=== PATIENT | male | born 1960 | race Caucasian/White ===

== ENCOUNTER 2018-02-04 09:50 | Emergency (ER) | payer OTHER, BC ==
[2018-02-04 10:00] VITALS: BP 167/113
--- NOTE | 2018-02-04 10:40 | EDM.PDOC ---
ED HPI GENERAL MEDICAL PROBLEM - General Chief Complaint: Chest Pain Stated Complaint: CHEST PAIN/SOB Time Seen by Provider: 02/04/18 10:36 Source of Information: Reports: Patient - History of Present Illness INITIAL COMMENTS - FREE TEXT/NARRATIVE: Patient is here for evaluation of chest pain over the last few months that has been worsening over the past week. He notes it is now pretty much a constant central chest pain that occasionally radiates to his right shoulder. 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 He has a total of 6 stents. He also has a history of TIA. He is still on his aspirin and Plavix. He does carry nitroglycerin has not taken this. Patient also has history of hypertension and sleep apnea, he does use his CPAP mask nightly. Patient notes that he is asleep he has had a significant increase in his stress recently with his losing her job. She has since found a new job in [place] and she is living there and he is raising his 9-year-old son here in [place]. Chest Pain Score (Numeric/FACES): 3 - Related Data Allergies Allergy/AdvReac Type Severity Reaction Status Date / Time morphine Allergy Hypotension Verified 02/04/18 10:00 Home Meds: Home Meds Aspirin [Adult Low Dose Aspirin EC] 81 mg PO DAILY 11/16/15 [History] Omeprazole [Prilosec] 20 mg PO DAILY 11/16/15 [History] Potassium Chloride 20 meq PO DAILY 11/16/15 [History] Budesonide/Formoterol [Symbicort 160-4.5 MCG] 2 puff INH BID 08/06/16 [History] Cetirizine [ZyrTEC] 10 mg PO DAILY 08/06/16 [History] Fish Oil/DHA/EPA [Fish Oil 1,200 MG] 1,200 mg PO DAILY 08/06/16 [History] Ibuprofen 400 mg PO ASDIRECTED PRN 08/06/16 [History] Metoprolol Tartrate [Lopressor] 12.5 mg PO DAILY 08/06/16 [History] Niacin [Niaspan] 2 tab PO DAILY 08/06/16 [History] Nitroglycerin 0.4 mg SL ASDIRECTED PRN 08/06/16 [History] Testosterone Cypionate 200 mg IM ASDIRECTED 08/06/16 [History] diphenhydrAMINE HCl [Allergy] 25 mg PO BEDTIME PRN 08/06/16 [History] Clopidogrel [Plavix] 75 mg PO DAILY 11/21/16 [History] Pravastatin. 11/21/16 [History] Prednisone [IJD: predniSONE] 60 mg PO WITHBREAKFAST #15 tab 11/21/16 [Rx] Acetaminophen [Tylenol Extra Strength] 1,000 mg PO ASDIRECTED PRN 02/04/18 [ History] Albuterol Sulfate [Proair Respiclick] 2 puff INH Q4H PRN 02/04/18 [History] Past Medical History HEENT History: Reports: Impaired Vision Other HEENT History: wears eyeglasses Cardiovascular History: Reports: CAD, Hypertension, KS Other Cardiovascular History: 2 previous MIs. last in 2006 Respiratory History: Reports: Asthma, COPD Gastrointestinal History: Reports: GERD Musculoskeletal History: Reports: Back Pain, Chronic, Fracture, Other (See Below ) Other Musculoskeletal History: degenerative SI joint Neurological History: Reports: CVA, Head Trauma, TIA, Other (See Below) Other Neuro History: memory loss Dermatologic History: Reports: Other (See Below) Other Dermatologic History: affliculitis - Infectious Disease History Infectious Disease History: Reports: Chicken Pox, Measles, Mumps - Past Surgical History HEENT Surgical History: Reports: Other (See Below) Other HEENT Surgeries/Procedures: septoplasty Cardiovascular Surgical History: Reports: Coronary Artery Stent Other Cardiovascular Surgeries/Procedures: stents X3 Respiratory Surgical History: Reports: None GI Surgical History: Reports: Other (See Below) Other GI Surgeries/Procedures: esophageal dilation Neurological Surgical History: Reports: None Musculoskeletal Surgical History: Reports: None Dermatological Surgical History: Reports: None Social & Family History - Family History Family Medical History: Noncontributory - Tobacco Use Smoking Status *Q: Never Smoker Second Hand Smoke Exposure: No - Caffeine Use Caffeine Use: Reports: Soda - Recreational Drug Use Recreational Drug Use: No ED ROS GENERAL - Review of Systems Review Of Systems: See Below Constitutional: Reports: Weakness, Fatigue. Denies: Fever, Chills, Malaise, Decreased Appetite HEENT: Reports: No Symptoms Respiratory: Reports: Shortness of Breath. Denies: Wheezing, Pleuritic Chest Pain, Cough, Sputum Cardiovascular: Reports: Chest Pain, Blood Pressure Problem, Dyspnea on Exertion. Denies: Claudication, Edema, Palpitations, Syncope GI/Abdominal: Reports: No Symptoms Skin: Reports: No Symptoms Neurological: Reports: No Symptoms ED EXAM, GENERAL - Physical Exam Exam: See Below Exam Limited By: No Limitations General Appearance: Alert, WD/WN, Anxious, Mild Distress Throat/Mouth: Normal Inspection, Normal Lips, Normal Oropharynx, Normal Voice Head: Atraumatic, Normocephalic Neck: Normal Inspection, Supple, Non-Tender Respiratory/Chest: No Respiratory Distress, Lungs Clear, Normal Breath Sounds Cardiovascular: Normal Peripheral Pulses, Regular Rate, Rhythm, No Murmur GI/Abdominal: Normal Bowel Sounds, Soft, Non-Tender Neurological: Alert, Oriented Psychiatric: Normal Affect, Normal Mood Skin Exam: Warm, Dry, Intact EKG INTERPRETATION EKG Date: 02/04/18 Time: 10:01 Rhythm: NSR Rate (Beats/Min): 78 [place]: Normal Course - Vital Signs Last Recorded V/S: Last Vital Signs Temp 97.0 F 02/04/18 09:57 Pulse 77 02/04/18 09:57 Resp 19 02/04/18 09:57 BP 167/113 H 02/04/18 09:57 Pulse Ox 96 02/04/18 09:57 - Orders/Labs/Meds Orders: Active Orders 24 hr Category Date Time Status EKG Documentation Completion [RC] ASDIRECTED Care 02/04/18 10:45 Active MAGNESIUM [CHEM] Stat Lab 02/04/18 10:15 Received UA W/MICROSCOPIC [URIN] Stat Lab 02/04/18 11:18 Results EKG 12 Lead [EK] Stat Ther 02/04/18 10:45 Ordered Labs: Laboratory Tests 02/04/18 02/04/18 02/04/18 Range/Units 10:15 10:15 11:18 WBC 6.87 (4.23-9.07) K/mm3 RBC 4.93 (4.63-6.08) M/mm3 Hgb 15.5 (13.7-17.5) gm/L Hct 44.6 (40.1-51.0) % MCV 90.5 (79.0-92.2) fl MCH 31.4 (25.7-32.2) pg MCHC 34.8 (32.2-35.5) g/dl RDW Std Deviation 44.3 H (35.1-43.9) fL Plt Count 266 (163-337) K/mm3 MPV 9.0 L (9.4-12.3) fl Neutrophils % (Manual) 58 (40-60) % Band Neutrophils % 1 (0-10) % Lymphocytes % (Manual) 36 (20-40) % Atypical Lymphs % 0 % Monocytes % (Manual) 4 (2-10) % Eosinophils % (Manual) 1 (0.8-7.0) % Basophils % (Manual) 0 L (0.2-1.2) Platelet Estimate Adequate RBC Morph Comment Normal Sodium 138 (136-145) mEq/L Potassium 3.5 (3.5-5.1) mEq/L Chloride 103 (98-107) mEq/L Carbon Dioxide 23 (21-32) mEq/L Anion Gap 15.5 H (5-15) BUN 9 (7-18) mg/dL Creatinine 1.0 (0.7-1.3) mg/dL Est Cr Clr Drug Dosing 88.90 mL/min Estimated GFR (MDRD) > 60 (>60) mL/min BUN/Creatinine Ratio 9.0 L (14-18) Glucose 145 H (74-106) mg/dL Calcium 8.8 (8.5-10.1) mg/dL Total Bilirubin 0.4 (0.2-1.0) mg/dL AST 25 (15-37) U/L ALT 37 (16-63) U/L Alkaline Phosphatase 73 (46-116) U/L Troponin I < 0.017 (0.00-0.056) ng/mL C-Reactive Protein < 0.2 (<1.0) mg/dL Total Protein 7.4 (6.4-8.2) g/dl Albumin 3.7 (3.4-5.0) g/dl Globulin 3.7 gm/dL Albumin/Globulin Ratio 1.0 (1-2) Lipase 203 (73-393) U/L TSH 3rd Generation 2.010 (0.358-3.74) uIU/mL Urine Color Yellow (Yellow) Urine Appearance Clear (Clear) Urine pH 7.5 (5.0-8.0) Ur Specific [place] 1.020 (1.005-1.030) Urine Protein Negative (Negative) Urine Glucose (UA) Negative (Negative) Urine Ketones Negative (Negative) Urine Occult Blood Trace-lysed H (Negative) Urine Nitrite Negative (Negative) Urine Bilirubin Negative (Negative) Urine Urobilinogen 0.2 (0.2-1.0) Ur Leukocyte Esterase Negative (Negative) - Re-Assessments/Exams Free Text/Narrative Re-Assessment/Exam: Patient states his pain has been ongoing, he declines pain medication for now. EKG demonstrates normal sinus rhythm with a rate of 78. Chest x-ray demonstrates nothing acute. CBC normal. Glucose mildly elevated at 145. Troponin and CRP are both negative. TSH 2.010. Discussed with patient that as he has been having symptoms for some time, if this were causing her damage his troponin will be elevated. Patient is to follow-up with his primary provider and I would recommend his operations systems specialist as well to discuss further treatment of angina. He has been having some increased stress and anxiety and this will need to be addressed on an outpatient basis as well. Advised patient if anything should worsen or persist that he certainly may return to the emergency room at any time if needed. 02/04/18 11:49 02/04/18 12:26 Departure - Departure Time of Disposition: 12:27 Disposition: Home, Self-Care 01 Condition: Good Clinical Impression: Angina at rest Instructions: Angina Pectoris, [id number] Referrals: Ebony Alfaro DO [Primary Care Provider] - Forms: ED Department Discharge Additional Instructions: Evaluation of your heart today in the emergency room was essentially negative. You will need to follow up with her primary provider and operations systems specialist to evaluate this further and consider other options for treatment of your chronic angina. Return to the emergency room if any worsening of symptoms or as needed. - My Orders Last 24 Hours: My Active Orders 02/04/18 10:15 MAGNESIUM [CHEM] Stat 02/04/18 10:45 EKG Documentation Completion [RC] ASDIRECTED EKG 12 Lead [EK] Stat 02/04/18 11:18 UA W/MICROSCOPIC [URIN] Stat - Assessment/Plan Last 24 Hours: My Active Orders 02/04/18 10:15 MAGNESIUM [CHEM] Stat 02/04/18 10:45 EKG Documentation Completion [RC] ASDIRECTED EKG 12 Lead [EK] Stat 02/04/18 11:18 UA W/MICROSCOPIC [URIN] Stat
--- NOTE | 2018-02-04 11:51 | CR ---
Chest: Two views of the chest were obtained. Comparison: Prior chest x-ray of 08/06/[address] of 11/21/16. Heart size and mediastinum are within normal limits. Lungs show no acute parenchymal densities. Old healed left clavicle fracture is noted. Mild degenerative change is scattered within the spine. Degenerative change also noted within the right acromioclavicular joint. Impression: 1. Incidental findings. Nothing acute is appreciated on two-view chest x-ray. Diagnostic code #2
== END 2018-02-04 12:43 | disposition home or self-care (01) ==
LOC: JD.ED 09:50
DX: I20.9 Angina pectoris, unspecified (principal); K21.9 Gastro-esophageal reflux disease without esophagitis; J44.9 Chronic obstructive pulmonary disease, unspecified; I25.2 Old myocardial infarction; Z86.73 Personal history of transient ischemic attack (TIA), and cerebral infarction without residual deficits; Z79.82 Long term (current) use of aspirin; Z79.899 Other long term (current) drug therapy; Z88.5 Allergy status to narcotic agent
CPT/HCPCS: 36415; 71046; 71046-26; 80053; 81001; 83690; 83735; 84443; 84484; 85025; 86140; 93005; 93010; 99284; 99285-25

== ENCOUNTER 2019-09-20 07:48 | Emergency (ER) | payer OTHER ==
--- NOTE | 2019-09-20 07:57 | EDM.PDOC ---
ED HPI GENERAL MEDICAL PROBLEM - General Chief Complaint: General Stated Complaint: BROUGHT OVER FROM STRESS TEST Time Seen by Provider: 09/20/19 07:55 - History of Present Illness INITIAL COMMENTS - FREE TEXT/NARRATIVE: 59-year-old male brought over from the stress test lab have shortness of breath. Patient's had a history of 3 myocardial infarctions in the past and multiple stents placed. [facility]. He has cardiology follow- up this coming . Patient underwent his stress test and it was slow to get his pulse rate up he had the [place] scan done and developed persistent shortness of breath that did not resolve. The patient did not have chest pain but he was starting to get some left arm discomfort normally with his angina he gets chest pain followed by the left arm discomfort. The patient is on Plavix and aspirin. Patient gives a history of about a 20 pound weight loss over the last several months during this time he was started on diuretics because of edema in his left leg. Apparently an ultrasound, or some other imaging study done to his left leg but has been a unable to get the [facility] of this [facility]. the patient doesn't sound like it is on a exercise regimen. He did walk 3 blocks on and had to stop because of shortness of breath and left arm pain. The patient has nitroglycerin with him however has never used it. - Related Data Allergies Allergy/AdvReac Type Severity Reaction Status Date / Time [id number] Reductase Allergy Muscle Verified 09/20/19 07:54 Inhibitor Aches morphine AdvReac Hypotension Verified 09/20/19 07:54 Home Meds: Home Meds Aspirin [Adult Low Dose Aspirin EC] 81 mg PO DAILY 11/16/15 [History] Budesonide/Formoterol [Symbicort 160-4.5 MCG] 2 puff INH BID 08/06/16 [History] Cetirizine [ZyrTEC] 10 mg PO DAILY 08/06/16 [History] Fish Oil/DHA/EPA [Fish Oil 1,200 MG] 1,200 mg PO DAILY 08/06/16 [History] Ibuprofen 400 mg PO ASDIRECTED PRN 08/06/16 [History] Nitroglycerin 0.4 mg SL ASDIRECTED PRN 08/06/16 [History] diphenhydrAMINE HCl [Allergy] 25 mg PO BEDTIME PRN 08/06/16 [History] Clopidogrel [Plavix] 75 mg PO DAILY 11/21/16 [History] Acetaminophen [Tylenol Extra Strength] 1,000 mg PO ASDIRECTED PRN 02/04/18 [ History] Albuterol Sulfate [Proair Respiclick] 2 puff INH Q4H PRN 02/04/18 [History] Flaxseed/Omega3,6,9/Fatty Acid [Flax Seed Oil 1,300 mg Softgel] 1 tab PO DAILY 02/04/18 [History] Metoprolol Succinate [Toprol XL] 12.5 mg PO BID 02/04/18 [History] Multivitamin [Multivitamins] 1 each PO DAILY 02/04/18 [History] Pantoprazole [ProTONIX] 40 mg PO DAILY 02/04/18 [History] Pravastatin [Pravachol] 40 mg PO BEDTIME 02/04/18 [History] Cyclobenzaprine [Flexeril] 10 mg PO TID PRN 09/25/18 [History] Fish Oil/DHA/EPA [Fish Oil 1,200 MG] 1,200 mg PO DAILY 09/25/18 [History] Lisinopril/Hydrochlorothiazide [Lisinopril-Hctz 20-25 mg Tab] 0.5 tab PO DAILY 09/25/18 [History] Potassium Chloride [Klor-Con M20] 20 meq PO Q24H #3 tab.er 09/20/19 [Rx] Past Medical History HEENT History: Reports: Allergic Rhinitis, Impaired Vision Other HEENT History: wears eyeglasses Cardiovascular History: Reports: CAD, High Cholesterol, Hypertension, Stents Other Cardiovascular History: 2 previous MIs. last in 2006 Respiratory History: Reports: Asthma, Sleep Apnea Gastrointestinal History: Reports: Colon Polyp, Diverticulosis, GERD, Other ( See Below) Other Gastrointestinal History: esophagitis, diverticulosis Genitourinary History: Reports: Other (See Below) Other Genitourinary History: testicular hypofunction COLLECTIONS MANAGER History: Reports: None Musculoskeletal History: Reports: None Other Musculoskeletal History: degenerative SI joint Neurological History: Reports: TIA Other Neuro History: memory loss Psychiatric History: Reports: Other (See Below) Other Psychiatric History: dysthymia, dyslexia Endocrine/Metabolic History: Reports: None Immunologic History: Reports: None Oncologic (Cancer) History: Reports: None Dermatologic History: Reports: None Other Dermatologic History: affliculitis - Infectious Disease History Infectious Disease History: Reports: Chicken Pox, Measles, Mumps - Past Surgical History Head Surgeries/Procedures: Reports: None HEENT Surgical History: Reports: Naso-Sinus Surgery, Tonsillectomy Cardiovascular Surgical History: Reports: None, Coronary Artery Stent (times 3) Respiratory Surgical History: Reports: None GI Surgical History: Reports: Colonoscopy, EGD Female Surgical History: Reports: None Male Surgical History: Reports: None Endocrine Surgical History: Reports: None Neurological Surgical History: Reports: None Musculoskeletal Surgical History: Reports: None Oncologic Surgical History: Reports: None Dermatological Surgical History: Reports: None Social & Family History - Family History Family Medical History: Noncontributory - Caffeine Use Caffeine Use: Reports: Soda ED ROS GENERAL - Review of Systems Review Of Systems: See Below Constitutional: Reports: No Symptoms HEENT: Reports: No Symptoms Respiratory: Reports: Shortness of Breath (With today's stress test and with activity) Cardiovascular: Reports: Dyspnea on Exertion GI/Abdominal: Reports: No Symptoms : Reports: No Symptoms Musculoskeletal: Reports: No Symptoms Neurological: Reports: No Symptoms Psychiatric: Reports: No Symptoms ED EXAM, GENERAL - Physical Exam Exam: See Below Exam Limited By: No Limitations General Appearance: Alert, No Apparent Distress Head: Atraumatic, Normocephalic Neck: Normal Inspection, Supple, Non-Tender, Full Range of Motion, Other (No JVD ). No: Lymphadenopathy (R), Thyromegaly Respiratory/Chest: No Respiratory Distress, Lungs Clear, Normal Breath Sounds Cardiovascular: Regular Rate, Rhythm, No Murmur, Other (No appreciable edema) GI/Abdominal: Normal Bowel Sounds, Soft, Non-Tender Back Exam: Normal Inspection. No: CVA Tenderness (L), CVA Tenderness (R) Extremities: Normal Inspection, Non-Tender Neurological: Alert, Oriented, Normal Cognition Course - Vital Signs Last Recorded V/S: Last Vital Signs Temp 36.8 C 09/20/19 07:52 Pulse 70 09/20/19 11:17 Resp 18 09/20/19 10:41 BP 136/89 09/20/19 11:17 Pulse Ox 100 09/20/19 10:41 - Orders/Labs/Meds Orders: Active Orders 24 hr Category Date Time Status EKG Documentation Completion [RC] STAT Care 09/20/19 07:56 Active EKG Documentation Completion [RC] STAT Care 09/20/19 08:08 Inactive Labs: Laboratory Tests 09/20/19 09/20/19 09/20/19 Range/Units 08:00 08:00 08:00 WBC 5.83 (4.23-9.07) K/mm3 RBC 4.51 L (4.63-6.08) M/mm3 Hgb 14.6 (13.7-17.5) gm/dl Hct 40.5 (40.1-51.0) % MCV 89.8 (79.0-92.2) fl MCH 32.4 H (25.7-32.2) pg MCHC 36.0 H (32.2-35.5) g/dl RDW Std Deviation 41.2 (35.1-43.9) fL Plt Count 267 (163-337) K/mm3 MPV 8.9 L (9.4-12.3) fl Neutrophils % (Manual) 59 (40-60) % Band Neutrophils % 0 (0-10) % Lymphocytes % (Manual) 21 (20-40) % Atypical Lymphs % 0 % Monocytes % (Manual) 12 H (2-10) % Eosinophils % (Manual) 8 H (0.8-7.0) % Basophils % (Manual) 0 L (0.2-1.2) Platelet Estimate Adequate RBC Morph Comment Normal PT 11.7 (9.7-12.0) SECONDS INR 1.08 APTT 27 (22-31) SECONDS Sodium 138 (136-145) mEq/L Potassium 3.3 L (3.5-5.1) mEq/L Chloride 103 (98-107) mEq/L Carbon Dioxide 22 (21-32) mEq/L Anion Gap 16.3 H (5-15) BUN 15 (7-18) mg/dL Creatinine 1.4 H (0.7-1.3) mg/dL Est Cr Clr Drug Dosing 62.00 mL/min Estimated GFR (MDRD) 52 (>60) mL/min BUN/Creatinine Ratio 10.7 L (14-18) Glucose 107 H (74-106) mg/dL Calcium 9.2 (8.5-10.1) mg/dL Magnesium (1.8-2.4) mg/dl Total Bilirubin 0.5 (0.2-1.0) mg/dL AST 23 (15-37) U/L ALT 27 (16-63) U/L Alkaline Phosphatase 64 (46-116) U/L Troponin I < 0.017 (0.00-0.056) ng/mL NT-Pro-B Natriuret Pep (0-125) pg/mL Total Protein 7.3 (6.4-8.2) g/dl Albumin 3.8 (3.4-5.0) g/dl Globulin 3.5 gm/dL Albumin/Globulin Ratio 1.1 (1-2) 09/20/19 09/20/19 09/20/19 Range/Units 08:00 08:00 11:03 WBC (4.23-9.07) K/mm3 RBC (4.63-6.08) M/mm3 Hgb (13.7-17.5) gm/dl Hct (40.1-51.0) % MCV (79.0-92.2) fl MCH (25.7-32.2) pg MCHC (32.2-35.5) g/dl RDW Std Deviation (35.1-43.9) fL Plt Count (163-337) K/mm3 MPV (9.4-12.3) fl Neutrophils % (Manual) (40-60) % Band Neutrophils % (0-10) % Lymphocytes % (Manual) (20-40) % Atypical Lymphs % % Monocytes % (Manual) (2-10) % Eosinophils % (Manual) (0.8-7.0) % Basophils % (Manual) (0.2-1.2) Platelet Estimate RBC Morph Comment PT (9.7-12.0) SECONDS INR APTT (22-31) SECONDS Sodium (136-145) mEq/L Potassium (3.5-5.1) mEq/L Chloride (98-107) mEq/L Carbon Dioxide (21-32) mEq/L Anion Gap (5-15) BUN (7-18) mg/dL Creatinine (0.7-1.3) mg/dL Est Cr Clr Drug Dosing mL/min Estimated GFR (MDRD) (>60) mL/min BUN/Creatinine Ratio (14-18) Glucose (74-106) mg/dL Calcium (8.5-10.1) mg/dL Magnesium 1.9 (1.8-2.4) mg/dl Total Bilirubin (0.2-1.0) mg/dL AST (15-37) U/L ALT (16-63) U/L Alkaline Phosphatase (46-116) U/L Troponin I < 0.017 (0.00-0.056) ng/mL NT-Pro-B Natriuret Pep 112 (0-125) pg/mL Total Protein (6.4-8.2) g/dl Albumin (3.4-5.0) g/dl Globulin gm/dL Albumin/Globulin Ratio (1-2) Meds: Medications Discontinued Medications Generic Name Dose Route Start Last Admin Trade Name Kwame PRN Reason Stop Dose Admin Aspirin 324 mg 09/20/19 08:21 09/20/19 08:36 Aspirin PO 09/20/19 08:22 324 mg ONETIME ONE Administration Potassium Chloride 40 meq 09/20/19 09:52 09/20/19 11:12 Klor-Con M20 PO 09/20/19 09:53 40 meq ONETIME ONE Administration - Re-Assessments/Exams Free Text/Narrative Re-Assessment/Exam: 09/20/19 12:25 Patient feels normal at this time his second troponin was negative. He had Cardiolite images done as part of stress test this morning these have not been read yet however I've talked to radiology and they will try and get back to me with report fairly soon. His BNP is normal. Initial labs did show a potassium that was a little low at 3.3 he was given 40 mEq of oral potassium. Follow-up magnesium was borderline at 1.9 09/20/19 13:35 Just got his Cardiolite images. No abnormality seen here the limited stress test did not show any gross abnormalities however the official report is pending. Departure - Departure Time of Disposition: 13:36 Disposition: Home, Self-Care 01 Clinical Impression: Shortness of breath on exertion, Atherosclerotic cardiovascular disease Prescriptions: Potassium Chloride [Klor-Con M20] 20 meq PO Q24H #3 tab.er Referrals: Wendy Rob MD [Primary Care Provider] - Forms: ED Department Discharge Additional Instructions: Return to the emergency room if any questions problems or worsening symptoms. Follow-up with cardiology as scheduled tests superintendent some [id number] magnesium oxide 400 mg take 1 daily. Take the potassium is directed - My Orders Last 24 Hours: My Active Orders 09/20/19 07:56 EKG Documentation Completion [RC] STAT 09/20/19 08:08 EKG Documentation Completion [RC] STAT - Assessment/Plan Last 24 Hours: My Active Orders 09/20/19 07:56 EKG Documentation Completion [RC] STAT 09/20/19 08:08 EKG Documentation Completion [RC] STAT
[2019-09-20] MEDS ORDERED: Aspirin 81 MG Tab.Chew PO ONE (08:21)
[2019-09-20] MEDS ORDERED: Potassium Chloride 20 MEQ Tab.ER PO ONE (09:52)
[2019-09-20 10:42] VITALS: PULSE 70
--- NOTE | 2019-09-20 10:44 | CR ---
Chest: Portable view of the chest was obtained. Comparison: Prior chest x-ray of 02/04/18. Heart size and mediastinum are normal. Lungs are clear. Mild scoliosis noted within the spine with scattered disc space narrowing and endplate osteophytes seen. Old healed left clavicle fracture is noted. Impression: 1. Findings believed to be incidental as noted above. 2. Nothing acute is appreciated on portable chest x-ray. Diagnostic code #2 MTDD
[2019-09-20 11:17] VITALS: BP 136/89
== END 2019-09-20 13:43 | disposition home or self-care (01) ==
LOC: JD.ED 07:48
DX: I25.10 Atherosclerotic heart disease of native coronary artery without angina pectoris (principal); I25.2 Old myocardial infarction; E78.00 Pure hypercholesterolemia, unspecified; I10 Essential (primary) hypertension; J45.909 Unspecified asthma, uncomplicated; K21.9 Gastro-esophageal reflux disease without esophagitis; Z88.8 Allergy status to other drugs, medicaments and biological substances; Z88.5 Allergy status to narcotic agent; Z86.73 Personal history of transient ischemic attack (TIA), and cerebral infarction without residual deficits; Z95.5 Presence of coronary angioplasty implant and graft; Z79.82 Long term (current) use of aspirin; Z79.02 Long term (current) use of antithrombotics/antiplatelets; Z79.899 Other long term (current) drug therapy; Z79.51 Long term (current) use of inhaled steroids
CPT/HCPCS: 36415; 71045; 80053; 83735; 83880; 84484; 85007; 85027; 85610; 85730; 93005; 99284; A9270; 93010; 99283

== ENCOUNTER 2020-01-25 11:54 | Emergency (ER) | payer OTHER ==
[2020-01-25 12:09] VITALS: BP 135/91; PULSE 59
--- NOTE | 2020-01-25 12:33 | EDM.PDOC ---
ED HPI GENERAL MEDICAL PROBLEM - General Chief Complaint: Neuro Symptoms/Deficits Stated Complaint: STROKE SYMPTOMS Time Seen by Provider: 01/25/20 12:00 Source of Information: Reports: Patient, Family () History Limitations: Reports: No Limitations - History of Present Illness INITIAL COMMENTS - FREE TEXT/NARRATIVE: A stroke alert was called for this patient. Mr. Woods is a very pleasant 59-year-old man with a past medical history significant for coronary artery disease, status post 2 MIs and up to 14 coronary artery stents, hypertension, GERD, and obstructive sleep apnea, who now presents to the ED stating that he is having another stroke. He states that he has had 4 strokes in the past, 2 in 2005, resulting in some long-term memory loss, along with 2 in August of 2019, causing him to become forgetful. None of his strokes, however, have resulted in any focal neurologic deficits, such as unilateral weakness or clumsiness, and the patient acknowledges that prior imaging studies of his head, including MRIs and CT scans, failed to show any abnormalities. The patient's also noted that a Neurologist who saw the patient while he was having one of his events was adamant that he was not having a stroke. He states that he has had poor balance, stumbling, almost falling, since last week. He is also had one week of a strange sensation to the left side of his face due to a left-sided headache felt in the temporal area, and behind his left eye. The left eye pain started yesterday, and has been coming and going. Additionally, he states that someone told him yesterday that one pupil appeared to be small, the other large, but he does not recall which one was which. He states that he was seen at [facility] last week, and was told that his potassium was "off". He was prescribed oral potassium chloride, along with prednisone and a Z-Tad. He has no idea what the prednisone and Z-Tad were supposed to treat. He states that he has had some dyspnea on exertion since this past weekend, and when asked about chest pain, he indicated that he may have had some chest discomfort, possibly today, but he is not sure. He reports having URI symptoms , including sinus pressure, rhinorrhea, and a sore throat, since December. He reports watery diarrhea yesterday, only, but a normal bowel movement today. He reports a slight abdominal pain, and he states that he has had a 5 pound weight gain over the weekend, that he attributes to the prednisone. He reports blurry vision when he bends over, for the past week. He denies recent fever, chills, cough, palpitations, nausea, vomiting, constipation, urinary symptoms, recent weight loss, recent bloody bowel movements or black bowel movements, recent joint aches, or rashes. When asked about migraines, the patient reports that he used to have a lot of them when he was younger, but that they diminished in frequency as he got older. The patient's PCP is at the [facility]. Headache Pain Score (Numeric/FACES): 4 - Related Data Allergies Allergy/AdvReac Type Severity Reaction Status Date / Time ticagrelor [From Brilinta] Allergy Paralysis Verified 01/25/20 12:17 morphine AdvReac Hypotension Verified 09/20/19 07:54 Kzwzutn-Pwb-Rie Reductase AdvReac Muscle Verified 01/25/20 12:17 Inhibitor Aches Home Meds: Home Meds Aspirin [Adult Low Dose Aspirin EC] 81 mg PO DAILY 11/16/15 [History] Budesonide/Formoterol [Symbicort 160-4.5 MCG] 2 puff INH BID 08/06/16 [History] Cetirizine [ZyrTEC] 10 mg PO DAILY 08/06/16 [History] Fish Oil/DHA/EPA [Fish Oil 1,200 MG] 1,200 mg PO DAILY 08/06/16 [History] Ibuprofen 400 mg PO ASDIRECTED PRN 08/06/16 [History] Nitroglycerin 0.4 mg SL ASDIRECTED PRN 08/06/16 [History] diphenhydrAMINE HCl [Allergy] 25 mg PO BEDTIME PRN 08/06/16 [History] Clopidogrel [Plavix] 75 mg PO DAILY 11/21/16 [History] Acetaminophen [Tylenol Extra Strength] 1,000 mg PO ASDIRECTED PRN 02/04/18 [ History] Albuterol Sulfate [Proair Respiclick] 2 puff INH Q4H PRN 02/04/18 [History] Flaxseed/Omega3,6,9/Fatty Acid [Flax Seed Oil 1,300 mg Softgel] 1 tab PO DAILY 02/04/18 [History] Metoprolol Succinate [Toprol XL] 12.5 mg PO BID 02/04/18 [History] Multivitamin [Multivitamins] 1 each PO DAILY 02/04/18 [History] Pantoprazole [ProTONIX] 40 mg PO DAILY 02/04/18 [History] Pravastatin [Pravachol] 40 mg PO BEDTIME 02/04/18 [History] Cyclobenzaprine [Flexeril] 10 mg PO TID PRN 09/25/18 [History] Fish Oil/DHA/EPA [Fish Oil 1,200 MG] 1,200 mg PO DAILY 09/25/18 [History] Lisinopril/Hydrochlorothiazide [Lisinopril-Hctz 20-25 mg Tab] 0.5 tab PO DAILY 09/25/18 [History] Potassium Chloride [Klor-Con M20] 20 meq PO Q24H #3 tab.er 09/20/19 [Rx] Rizatriptan Benzoate [Rizatriptan] 1 tab PO ASDIRECTED PRN #3 tab.rapdis [Rx] Past Medical History HEENT History: Reports: Allergic Rhinitis, Impaired Vision Other HEENT History: wears eyeglasses Cardiovascular History: Reports: CAD, High Cholesterol, Hypertension, AL (x 2) Respiratory History: Reports: Asthma, Sleep Apnea (nightly CPAP) Gastrointestinal History: Reports: Colon Polyp, Diverticulosis (diverticulitis) , GERD Neurological History: Reports: Migraines - Infectious Disease History Infectious Disease History: Reports: Chicken Pox, Measles, Mumps - Past Surgical History HEENT Surgical History: Reports: Naso-Sinus Surgery (Septoplasty), Tonsillectomy Cardiovascular Surgical History: Reports: Coronary Artery Stent (x 14), Other ( See Below) (Coronary angiogram x 3) GI Surgical History: Reports: Colonoscopy, EGD Social & Family History - Family History Family Medical History: Noncontributory - Tobacco Use Smoking Status *Q: Never Smoker - Caffeine Use Caffeine Use: Reports: None - Recreational Drug Use Recreational Drug Use: No - Living Situation & Occupation Living situation: Reports: , with Spouse ED ROS GENERAL - Review of Systems Review Of Systems: Comprehensive ROS is negative, except as noted in HPI. ED EXAM, GENERAL - Physical Exam Exam: See Below Exam Limited By: No Limitations General Appearance: Alert, WD/WN, No Apparent Distress Eye Exam: Bilateral Eye: EOMI, Normal Inspection, PERRL Ears: Normal External Exam, Normal Canal, Hearing Grossly Normal, Normal TMs Nose: Normal Inspection, Normal Mucosa, No Blood Throat/Mouth: Normal Inspection, Normal Lips, Normal Teeth, Normal Gums, Normal Oropharynx, Normal Voice, No Airway Compromise Head: Atraumatic, Normocephalic Neck: Normal Inspection, Supple, Non-Tender, Full Range of Motion, Lymphadenopathy (L) (mild, submandibular). No: Lymphadenopathy (R) Respiratory/Chest: No Respiratory Distress, Lungs Clear, Normal Breath Sounds, No Accessory Muscle Use Cardiovascular: Normal Peripheral Pulses, Regular Rate, Rhythm, No Edema, No Gallop, No JVD, No Murmur, No Rub Peripheral Pulses: 4+: Radial (L), Radial (R) GI/Abdominal: Normal Bowel Sounds, Soft, Non-Tender, No Organomegaly, No Distention, No Abnormal Bruit, No Mass (Male) Exam: Deferred Rectal (Males) Exam: Deferred Back Exam: Normal Inspection, Full Range of Motion, NT Extremities: Normal Inspection, Normal Range of Motion, Non-Tender, Normal Capillary Refill, No Pedal Edema Neurological: Alert, Oriented, CN II-XII Intact (reports a different sensation to the left side of his face compared to the right, but is unable to say how it is different, and he noted that that is where he has the headache and pain behind the left eye), Normal Cognition, No Motor/Sensory Deficits Psychiatric: Anxious Skin Exam: Warm, Dry, Intact, Normal Color, No Rash EKG INTERPRETATION EKG Date: 01/25/20 Time: 12:40 Rhythm: NSR Rate (Beats/Min): 59 [place]: Normal P-Wave: Enlarged (? GIACOMO) QRS: Normal (Early transition) ST-T: Normal QT: Normal Comparison: No Change (09/20/2019) Course - Vital Signs Last Recorded V/S: Last Vital Signs Temp 35.9 C L 01/25/20 12:04 Pulse 59 L 01/25/20 12:04 Resp 16 01/25/20 12:04 BP 135/91 H 01/25/20 12:04 Pulse Ox 99 01/25/20 12:04 Orthostatic Blood Pressure [ 116/77 Standing] Orthostatic Blood Pressure [ 117/85 Sitting] Orthostatic Blood Pressure [ 116/70 Supine] - Orders/Labs/Meds Orders: Active Orders 24 hr Category Date Time Status EKG Documentation Completion [RC] STAT Care 01/25/20 12:32 Active Orthostatic Vital Signs [RC] STAT Care 01/25/20 12:32 Active Labs: Laboratory Tests 01/25/20 01/25/20 01/25/20 Range/Units 12:04 12:22 12:22 WBC 9.47 H (4.23-9.07) K/mm3 RBC 4.39 L (4.63-6.08) M/mm3 Hgb 14.2 (13.7-17.5) gm/dl Hct 39.0 L (40.1-51.0) % MCV 88.8 (79.0-92.2) fl MCH 32.3 H (25.7-32.2) pg MCHC 36.4 H (32.2-35.5) g/dl RDW Std Deviation 40.6 (35.1-43.9) fL Plt Count 272 (163-337) K/mm3 MPV 8.3 L (9.4-12.3) fl Neutrophils % (Manual) 85 H (40-60) % Band Neutrophils % 0 (0-10) % Lymphocytes % (Manual) 12 L (20-40) % Atypical Lymphs % 0 % Monocytes % (Manual) 3 (2-10) % Eosinophils % (Manual) 0 L (0.8-7.0) % Basophils % (Manual) 0 L (0.2-1.2) Platelet Estimate Adequate RBC Morph Comment Normal D-Dimer, Quantitative (0.19-0.50) mg/L Sodium 139 (136-145) mEq/L Potassium 3.3 L (3.5-5.1) mEq/L Chloride 104 (98-107) mEq/L Carbon Dioxide 23 (21-32) mEq/L Anion Gap 15.3 H (5-15) BUN 13 (7-18) mg/dL Creatinine 1.2 (0.7-1.3) mg/dL Est Cr Clr Drug Dosing 72.34 mL/min Estimated GFR (MDRD) > 60 (>60) mL/min BUN/Creatinine Ratio 10.8 L (14-18) Glucose 113 H (74-106) mg/dL POC Glucose 96 (70-105) mg/dL Calcium 8.6 (8.5-10.1) mg/dL Magnesium 1.9 (1.8-2.4) mg/dl Total Bilirubin 0.3 (0.2-1.0) mg/dL AST 23 (15-37) U/L ALT 42 (16-63) U/L Alkaline Phosphatase 65 (46-116) U/L Troponin I < 0.017 (0.00-0.056) ng/mL Total Protein 6.9 (6.4-8.2) g/dl Albumin 3.4 (3.4-5.0) g/dl Globulin 3.5 gm/dL Albumin/Globulin Ratio 1.0 (1-2) TSH 3rd Generation 2.820 (0.358-3.74) uIU/mL 01/25/20 Range/Units 12:22 WBC (4.23-9.07) K/mm3 RBC (4.63-6.08) M/mm3 Hgb (13.7-17.5) gm/dl Hct (40.1-51.0) % MCV (79.0-92.2) fl MCH (25.7-32.2) pg MCHC (32.2-35.5) g/dl RDW Std Deviation (35.1-43.9) fL Plt Count (163-337) K/mm3 MPV (9.4-12.3) fl Neutrophils % (Manual) (40-60) % Band Neutrophils % (0-10) % Lymphocytes % (Manual) (20-40) % Atypical Lymphs % % Monocytes % (Manual) (2-10) % Eosinophils % (Manual) (0.8-7.0) % Basophils % (Manual) (0.2-1.2) Platelet Estimate RBC Morph Comment D-Dimer, Quantitative < 0.19 L (0.19-0.50) mg/L Sodium (136-145) mEq/L Potassium (3.5-5.1) mEq/L Chloride (98-107) mEq/L Carbon Dioxide (21-32) mEq/L Anion Gap (5-15) BUN (7-18) mg/dL Creatinine (0.7-1.3) mg/dL Est Cr Clr Drug Dosing mL/min Estimated GFR (MDRD) (>60) mL/min BUN/Creatinine Ratio (14-18) Glucose (74-106) mg/dL POC Glucose (70-105) mg/dL Calcium (8.5-10.1) mg/dL Magnesium (1.8-2.4) mg/dl Total Bilirubin (0.2-1.0) mg/dL AST (15-37) U/L ALT (16-63) U/L Alkaline Phosphatase (46-116) U/L Troponin I (0.00-0.056) ng/mL Total Protein (6.4-8.2) g/dl Albumin (3.4-5.0) g/dl Globulin gm/dL Albumin/Globulin Ratio (1-2) TSH 3rd Generation (0.358-3.74) uIU/mL Meds: Medications Discontinued Medications Generic Name Dose Route Start Last Admin Trade Name Freq PRN Reason Stop Dose Admin Benztropine Mesylate 1 mg 01/25/20 12:37 01/25/20 13:13 Cogentin PO 01/25/20 12:38 1 mg ONETIME STA Administration Haloperidol Lactate 5 mg 01/25/20 12:37 01/25/20 13:14 Haldol IM 01/25/20 12:38 5 mg ONETIME ONE Administration - Re-Assessments/Exams Free Text/Narrative Re-Assessment/Exam: 01/25/20 12:26 While the patient states that he believes he is having "another stroke", by history, he has never actually had a stroke, and his current symptoms are not consistent with a stroke, either. He reports poor balance and generalized weakness for the past week, but he does not have unilateral or focal weakness. He reports a headache felt primarily in the left temporal and left eye area for the past week, along with difficulty focusing, and on neurologic exam, he states that the left side of his face feels different than the right, but he is unable to elucidate exactly what is different. I suspect that the patient may be suffering from a migraine. I have ordered a CT scan of his head, which I anticipate will be normal. Provided there is no bleed, I will treat the patient with Haldol, to see if that improves his symptoms. In the meantime, I will order a work-up to address his other more systemic symptoms, such as his dyspnea, chest discomfort, watery diarrhea, and slight abdominal pain. 01/25/20 12:37 On preliminary review of the CT of the head without contrast, I see no intracranial hemorrhage. I will order IM Haldol and oral Cogentin. 01/25/20 13:21 CT of the head without contrast as read by Dr. Iniguez as: 1. Mild generalized atrophy. 2. No acute intracranial abnormality is appreciated. 01/25/20 14:45 The patient is not orthostatic. Two-view chest radiograph reviewed. The cardiac silhouette is within normal limits. No pulmonary vascular congestion. No pleural effusions. No focal infiltrate. No pneumothorax. Healed left clavicle fracture noted. Thoracic scoliosis noted. Kyphosis noted. Formal read per the Radiologist pending. The patient's CBC is remarkable for a WBC count slightly elevated at 9.47, but with 0% bandemia. His Hct is mildly depressed at 39.0, but with a Hgb normal at 14.2. The remainder of his CBC is unremarkable. His CMP is remarkable for a potassium mildly depressed at 3.3, and an anion gap slightly elevated at 15.3, but with a bicarbonate normal at 23. His blood glucose is slightly elevated at 113, with the remainder of his CMP being unremarkable. His magnesium level is within normal limits at 1.9. His troponin is undetectably low. His TSH is within normal limits at 2.820. His D-dimer is undetectably low. 01/25/20 15:02 Test results discussed with the patient and his . The patient reports complete resolution of his headache and eye pain following IM Haldol, confirming that his presenting symptoms were due to a migraine. I will submit a prescription for rizatriptan that the patient can take if he develops similar symptoms in the future. I noted that the patient's CT scan shows no prior strokes, and the patient's reiterated that a Neurologist who evaluated the patient when he previously thought he was having a stroke was adamant that he was not having a stroke. I can only speculate that prior similar events were due to migraines. Departure - Departure Time of Disposition: 15:04 Disposition: Home, Self-Care 01 Condition: Good Clinical Impression: Migraine headache without aura - Discharge Information *PRESCRIPTION DRUG MONITORING PROGRAM REVIEWED*: Not Applicable *COPY OF PRESCRIPTION DRUG MONITORING REPORT IN PATIENT JEM: Not Applicable Prescriptions: Rizatriptan Benzoate [Rizatriptan] 1 tab PO ASDIRECTED PRN #3 tab.rapdis PRN Reason: Headache Instructions: Migraine Headache Referrals: Wendy Rob MD [Primary Care Provider] - Forms: ED Department Discharge Additional Instructions: You were seen in the emergency room for a week of poor balance, headache, and eye pain. Work-up in the ER included blood work, positional blood pressure checks, a chest x-ray, a CT scan of your head without contrast, and an ECG. Your entire work-up was unremarkable. You have not suffered a stroke. You have not suffered a heart attack. You do not have a blood clot in your lungs. You do not have pneumonia. You do not have any significant electrolyte abnormalities. Your thyroid level is within normal limits. Your headache resolved following an injection of a neuroleptic medicine, confirming that your symptoms were due to a migraine. Get plenty of rest today in a dark, quiet place, and stay adequately hydrated. A prescription for the anti-migraine medicine rizatriptan (Maxalt) has been sent to the clinic pharmacy, located in the [facility] across the street from the hospital. Dissolve 1 tablet in your mouth, like a lozenge, at the earliest sign of a migraine. You may repeat after 2 hours, to a maximum of 3 tablets within a 24-hour period. If any other problems, please do not hesitate to return to the ER. Sepsis Event Note - Evaluation Sepsis Screening Result: No Definite Risk - Focused Exam Date Exam was Performed: 01/26/20 Time Exam was Performed: 09:17 - My Orders Last 24 Hours: My Active Orders 01/25/20 12:32 EKG Documentation Completion [RC] STAT Orthostatic Vital Signs [RC] STAT - Assessment/Plan Last 24 Hours: My Active Orders 01/25/20 12:32 EKG Documentation Completion [RC] STAT Orthostatic Vital Signs [RC] STAT
[2020-01-25] MEDS ORDERED: Haloperidol Lactate 5 MG/ML SDV IM ONE (12:37)
[2020-01-25] MEDS ORDERED: Benztropine 1 MG Tab PO STA (12:37)
--- NOTE | 2020-01-25 12:55 | CT ---
Head CT Technique: Multiple axial sections through the brain were obtained. Intravenous contrast was not utilized. Comparison: Previous head CT study of 06/30/16. Findings: Ventricles along with basal cisterns and sulci over the convexities are felt to be slightly prominent. No abnormal parenchymal densities are seen. No evidence of intracranial hemorrhage. No midline shift or mass-effect is identified. Bone window settings were reviewed. No acute calvarial abnormality is identified. Visualized mastoid sinuses and visualized paranasal sinuses show nothing acute. Impression: 1. Mild generalized atrophy. 2. No acute intracranial abnormality is appreciated. Diagnostic code #2 This report was dictated in [place] Standard Time
--- NOTE | 2020-01-26 08:33 | CR ---
Chest: Two views of the chest were obtained. Comparison: Prior chest x-ray of 09/20/19. Heart size and mediastinum are within normal limits. Lungs are clear with no acute parenchymal change. Mild scoliosis is noted within the spine. Old healed left clavicle fracture is noted. Scattered disc space narrowing is seen within the spine. Impression: 1. Nothing acute is appreciated on two-view chest x-ray. Diagnostic code #2 This report was dictated in [place] Standard Time
== END 2020-01-25 15:14 | disposition home or self-care (01) ==
LOC: JD.ED 11:54
DX: G43.009 Migraine without aura, not intractable, without status migrainosus (principal); I25.10 Atherosclerotic heart disease of native coronary artery without angina pectoris; I10 Essential (primary) hypertension; K21.9 Gastro-esophageal reflux disease without esophagitis; Z79.899 Other long term (current) drug therapy; Z98.890 Other specified postprocedural states; Z79.82 Long term (current) use of aspirin; Z88.8 Allergy status to other drugs, medicaments and biological substances; Z88.5 Allergy status to narcotic agent; Z86.73 Personal history of transient ischemic attack (TIA), and cerebral infarction without residual deficits
CPT/HCPCS: 36415; 70450; 71046; 80053; 82962; 83735; 84443; 84484; 85007; 85027; 85379; 93005; 96372; 99285; A9270; J1630; 93010; 99283

== ENCOUNTER 2020-04-18 16:00 | Emergency (ER) | payer OTHER ==
[2020-04-18 16:12] VITALS: BP 91/66; PULSE 120
[2020-04-18] MEDS ORDERED: Sodium Chloride 0.9% 10 ML Syringe FLUSH PRN (16:14)
--- NOTE | 2020-04-18 16:31 | CR ---
Chest: Portable view of the chest was obtained. Comparison: Prior chest x-ray of 09/20/19. Heart size and mediastinum are normal. Lungs are clear with no acute parenchymal change. Bony structures are grossly intact. Impression: 1. Nothing acute is appreciated on portable chest x-ray. Diagnostic code #1 This report was dictated in MDT
--- NOTE | 2020-04-18 16:36 | EDM.PDOC ---
ED HPI GENERAL MEDICAL PROBLEM - General Chief Complaint: Chest Pain Stated Complaint: HEART ATTACK Time Seen by Provider: 04/18/20 16:14 Source of Information: Reports: Patient, Old Records, RN Notes Reviewed History Limitations: Reports: No Limitations - History of Present Illness INITIAL COMMENTS - FREE TEXT/NARRATIVE: Patient is a 60-year-old male who presents to the ED for the evaluation of his chest discomfort. Patient notes that he was golfing earlier this afternoon, he was only 5 holes in, when he developed chest discomfort, increasing dyspnea and generalized lethargy or weakness. He states he could physically not go on while golfing. Patient did have nitroglycerin tablets, and did take 1 upon arrival to the ER, he states that this did help the chest pain. Patient notes he has a very long standing cardiac history, he states he has had 3 MIs, with about 13-15 stents placed. He does note that he has had stents within stents placed as well. Patient's cardiac doctor is Dr. Wright at [facility] in [place]. Patient's blood pressure at time of triage was 91/66, subsequently again 94/63, and then again 88/66. Patient is on Plavix, metoprolol, lisinopril/ hydrochlorothiazide, and aspirin, all of which he took this morning. Patient states he is not having any chest pain now, but did have some chest pain that radiated to his left arm that was concerning to him. He notes increased respiratory difficulty breathing as well, and a lot of diaphoresis. He states that he was tested for COVID during the citywide testing, and that was negative. Patient notes he does have a mild cough, that he attributes to his postnasal drip and allergy issues, and he denies any sort of fevers or chills. Chest Pain Score (Numeric/FACES): 6 - Related Data Allergies Allergy/AdvReac Type Severity Reaction Status Date / Time ticagrelor [From Brilinta] Allergy Paralysis Verified 04/18/20 16:12 morphine AdvReac Hypotension Verified 04/18/20 16:12 Fzxejrh-[id number]-Fhp Reductase AdvReac Muscle Verified 04/18/20 16:12 Inhibitor Aches Home Meds: Home Meds Aspirin [Adult Low Dose Aspirin EC] 81 mg PO DAILY 11/16/15 [History] Budesonide/Formoterol [Symbicort 160-4.5 MCG] 2 puff INH BID 08/06/16 [History] Cetirizine [ZyrTEC] 10 mg PO DAILY 08/06/16 [History] Fish Oil/DHA/EPA [Fish Oil 1,200 MG] 1,200 mg PO DAILY 08/06/16 [History] Ibuprofen 400 mg PO ASDIRECTED PRN 08/06/16 [History] Nitroglycerin 0.4 mg SL ASDIRECTED PRN 08/06/16 [History] diphenhydrAMINE HCL [Allergy] 25 mg PO BEDTIME PRN 08/06/16 [History] Clopidogrel [Plavix] 75 mg PO DAILY 11/21/16 [History] Acetaminophen [Tylenol Extra Strength] 1,000 mg PO ASDIRECTED PRN 02/04/18 [ History] Albuterol Sulfate [Proair Respiclick] 2 puff INH Q4H PRN 02/04/18 [History] Flaxseed/Omega3,6,9/Fatty Acid [Flax Seed Oil 1,300 mg Softgel] 1 tab PO DAILY 02/04/18 [History] Metoprolol Succinate [Toprol XL] 12.5 mg PO BID 02/04/18 [History] Multivitamin [Multivitamins] 1 each PO DAILY 02/04/18 [History] Pantoprazole [ProTONIX] 40 mg PO DAILY 02/04/18 [History] Pravastatin [Pravachol] 40 mg PO BEDTIME 02/04/18 [History] Cyclobenzaprine [Flexeril] 10 mg PO TID PRN 09/25/18 [History] Fish Oil/DHA/EPA [Fish Oil 1,200 MG] 1,200 mg PO DAILY 09/25/18 [History] Lisinopril/Hydrochlorothiazide [Lisinopril-Hctz 20-25 mg Tab] 0.5 tab PO DAILY 09/25/18 [History] Potassium Chloride [Klor-Con M20] 20 meq PO Q24H #3 tab.er 09/20/19 [Rx] Rizatriptan Benzoate [Rizatriptan] 1 tab PO ASDIRECTED PRN #3 tab.rapdis [Rx] Past Medical History HEENT History: Reports: Allergic Rhinitis, Impaired Vision Other HEENT History: wears eyeglasses Cardiovascular History: Reports: CAD, High Cholesterol, Hypertension, FL (x 2), Stents Other Cardiovascular History: 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 Respiratory History: Reports: Asthma, Sleep Apnea (nightly CPAP) Gastrointestinal History: Reports: Colon Polyp, Diverticulosis (diverticulitis) , GERD Other Gastrointestinal History: esophagitis, diverticulosis Genitourinary History: Reports: Other (See Below) Other Genitourinary History: testicular hypofunction Musculoskeletal History: Reports: Other (See Below) Other Musculoskeletal History: degenerative SI joint Neurological History: Reports: Migraines, Other (See Below) Other Neuro History: memory loss Psychiatric History: Reports: Other (See Below) Other Psychiatric History: dysthymia, dyslexia Hematologic History: Reports: Anticoagulation Therapy Other Dermatologic History: affliculitis - Infectious Disease History Infectious Disease History: Reports: Chicken Pox, Measles, Mumps - Past Surgical History HEENT Surgical History: Reports: Naso-Sinus Surgery (Septoplasty), Tonsillectomy Cardiovascular Surgical History: Reports: Coronary Artery Stent (x 14), Other ( See Below) (Coronary angiogram x 3) GI Surgical History: Reports: Colonoscopy, EGD Social & Family History - Family History Family Medical History: Noncontributory - Caffeine Use Caffeine Use: Reports: None - Living Situation & Occupation Living situation: Reports: , with Spouse ED ROS GENERAL - Review of Systems Review Of Systems: See Below Constitutional: Reports: Weakness (generalized), Diaphoresis. Denies: Fever, Chills Respiratory: Reports: Shortness of Breath. Denies: Cough Cardiovascular: Reports: Chest Pain (central chest discomfory, relieved by 1 dose of sublingual nitro). Denies: Edema GI/Abdominal: Denies: Abdominal Pain, Constipation, Diarrhea, Nausea, Vomiting ED EXAM, GENERAL - Physical Exam Exam: See Below Exam Limited By: No Limitations General Appearance: Alert, WD/WN, No Apparent Distress Eye Exam: Bilateral Eye: EOMI, Normal Inspection, PERRL Ears: Normal External Exam Throat/Mouth: Normal Inspection, Normal Lips, Normal Teeth, Normal Gums, Normal Oropharynx, Normal Voice, No Airway Compromise Head: Atraumatic, Normocephalic Neck: Normal Inspection Respiratory/Chest: No Respiratory Distress, Lungs Clear, Normal Breath Sounds, No Accessory Muscle Use, Chest Non-Tender Cardiovascular: Normal Peripheral Pulses, Regular Rate, Rhythm, No Murmur Peripheral Pulses: 3+: Radial (L), Radial (R) GI/Abdominal: Normal Bowel Sounds, Soft, Non-Tender, No Distention, No Mass Extremities: Normal Inspection, Normal Capillary Refill Neurological: Alert, Oriented, Normal Cognition, No Motor/Sensory Deficits Psychiatric: Normal Affect, Normal Mood Skin Exam: Warm, Dry, Intact, Normal Color, No Rash EKG INTERPRETATION EKG Date: 04/18/20 Time: 16:04 Rhythm: NSR Rate (Beats/Min): 119 Delta: Normal P-Wave: Present QRS: Normal ST-T: Normal QT: Normal EKG Interpretation Comments: No obvious ischemia or acute ST changes noted, reviewed by myself and Dr. Oreilly. Course - Vital Signs Last Recorded V/S: Last Vital Signs Temp 95.7 F L 04/18/20 16:00 Pulse 120 H 04/18/20 16:00 Resp 20 04/18/20 16:00 BP 91/66 04/18/20 16:00 Pulse Ox 99 04/18/20 16:00 - Orders/Labs/Meds Orders: Active Orders 24 hr Category Date Time Status EKG Documentation Completion [RC] STAT Care 04/18/20 16:14 Active EKG Documentation Completion [RC] STAT Care 04/18/20 19:58 Active Oxygen Therapy, ED [RC] ASDIRECTED Care 04/18/20 16:35 Active Peripheral IV Care [RC] . DIRECTED Care 04/18/20 16:15 Active Peripheral IV Insertion Adult [OM.PC] Stat Oth 04/18/20 16:14 Ordered Labs: Laboratory Tests 04/18/20 04/18/20 04/18/20 Range/Units 16:05 16:05 16:05 WBC 8.57 (4.23-9.07) K/mm3 RBC 4.97 (4.63-6.08) M/mm3 Hgb 16.0 D (13.7-17.5) gm/dl Hct 44.7 (40.1-51.0) % MCV 89.9 (79.0-92.2) fl MCH 32.2 (25.7-32.2) pg MCHC 35.8 H (32.2-35.5) g/dl RDW Std Deviation 41.7 (35.1-43.9) fL Plt Count 332 (163-337) K/mm3 MPV 8.8 L (9.4-12.3) fl Neutrophils % (Manual) 60 (40-60) % Band Neutrophils % 0 (0-10) % Lymphocytes % (Manual) 21 (20-40) % Atypical Lymphs % 0 % Monocytes % (Manual) 18 H (2-10) % Eosinophils % (Manual) 1 (0.8-7.0) % Basophils % (Manual) 0 L (0.2-1.2) Platelet Estimate Adequate RBC Morph Comment Normal PT 11.7 (9.7-12.0) SECONDS INR 1.08 APTT 28 (22-31) SECONDS D-Dimer, Quantitative 0.21 (0.19-0.50) mg/L Sodium 139 (136-145) mEq/L Potassium 2.9 L (3.5-5.1) mEq/L Chloride 102 (98-107) mEq/L Carbon Dioxide 20 L (21-32) mEq/L Anion Gap 19.9 H (5-15) BUN 14 (7-18) mg/dL Creatinine 1.5 H (0.7-1.3) mg/dL Est Cr Clr Drug Dosing 57.17 mL/min Estimated GFR (MDRD) 48 (>60) mL/min BUN/Creatinine Ratio 9.3 L (14-18) Glucose 131 H (74-106) mg/dL Calcium 9.1 (8.5-10.1) mg/dL Magnesium 1.7 L (1.8-2.4) mg/dl Total Bilirubin 0.6 (0.2-1.0) mg/dL AST 21 (15-37) U/L ALT 37 (16-63) U/L Alkaline Phosphatase 62 (46-116) U/L Troponin I 0.018 (0.00-0.056) ng/mL NT-Pro-B Natriuret Pep (0-125) pg/mL Total Protein 7.9 (6.4-8.2) g/dl Albumin 4.0 (3.4-5.0) g/dl Globulin 3.9 gm/dL Albumin/Globulin Ratio 1.0 (1-2) 04/18/20 04/18/20 Range/Units 16:05 19:15 WBC (4.23-9.07) K/mm3 RBC (4.63-6.08) M/mm3 Hgb (13.7-17.5) gm/dl Hct (40.1-51.0) % MCV (79.0-92.2) fl MCH (25.7-32.2) pg MCHC (32.2-35.5) g/dl RDW Std Deviation (35.1-43.9) fL Plt Count (163-337) K/mm3 MPV (9.4-12.3) fl Neutrophils % (Manual) (40-60) % Band Neutrophils % (0-10) % Lymphocytes % (Manual) (20-40) % Atypical Lymphs % % Monocytes % (Manual) (2-10) % Eosinophils % (Manual) (0.8-7.0) % Basophils % (Manual) (0.2-1.2) Platelet Estimate RBC Morph Comment PT (9.7-12.0) SECONDS INR APTT (22-31) SECONDS D-Dimer, Quantitative (0.19-0.50) mg/L Sodium (136-145) mEq/L Potassium (3.5-5.1) mEq/L Chloride (98-107) mEq/L Carbon Dioxide (21-32) mEq/L Anion Gap (5-15) BUN (7-18) mg/dL Creatinine (0.7-1.3) mg/dL Est Cr Clr Drug Dosing mL/min Estimated GFR (MDRD) (>60) mL/min BUN/Creatinine Ratio (14-18) Glucose (74-106) mg/dL Calcium (8.5-10.1) mg/dL Magnesium (1.8-2.4) mg/dl Total Bilirubin (0.2-1.0) mg/dL AST (15-37) U/L ALT (16-63) U/L Alkaline Phosphatase (46-116) U/L Troponin I 0.255 H* (0.00-0.056) ng/mL NT-Pro-B Natriuret Pep 62 (0-125) pg/mL Total Protein (6.4-8.2) g/dl Albumin (3.4-5.0) g/dl Globulin gm/dL Albumin/Globulin Ratio (1-2) Meds: Medications Discontinued Medications Generic Name Dose Route Start Last Admin Trade Name Freq PRN Reason Stop Dose Admin Heparin Sodium (Porcine) 4,000 units 04/18/20 20:07 04/18/20 20:32 Heparin Sodium IVPUSH 04/18/20 20:08 4,000 units .BOLUS ONE Administration Sodium Chloride 1,000 mls @ 999 mls/hr 04/18/20 17:35 04/18/20 17:48 Normal Saline IV 04/18/20 18:35 999 mls/hr ONETIME ONE Administration Potassium Chloride 10 meq/ 100 mls @ 100 mls/hr 04/18/20 18:10 04/18/20 20:12 Premix IV 04/19/20 19:09 100 mls/hr ASDIRECTED BERNARDA Administration Heparin Sodium/Dextrose 25,000 units in 500 mls @ 27.216 mls/hr 04/18/20 20: 15 04/18/20 20:31 Heparin 25,000 Units In D5w 500 Ml IV 12 units/kg/hr TITRATE BERNARDA 27.216 mls/hr Administration Protocol 12 UNITS/KG/HR Magnesium Sulfate 2 gm/ Premix 50 mls @ 25 mls/hr 04/18/20 20:16 04/18/20 20: 35 IV 04/18/20 22:15 25 mls/hr ONETIME ONE Administration Sodium Chloride 1,000 mls @ 150 mls/hr 04/18/20 20:30 04/18/20 20:28 Normal Saline IV 150 mls/hr ASDIRECTED BERNARDA Administration Lorazepam 0.5 mg 04/18/20 16:39 04/18/20 16:45 Ativan IVPUSH 04/18/20 16:40 0.5 mg ONETIME ONE Administration Lorazepam 0.5 mg 04/18/20 20:44 04/18/20 20:59 Ativan IVPUSH 04/18/20 20:45 0.5 mg ONETIME ONE Administration Nitroglycerin 1 gm 04/18/20 20:15 04/18/20 20:29 Nitro-Bid 2% TOP 04/18/20 20:16 1 gm ONETIME ONE Administration Potassium Chloride 40 meq 04/18/20 17:35 04/18/20 17:48 Klor-Con M20 PO 04/18/20 17:36 40 meq ONETIME ONE Administration Potassium Chloride 20 meq 04/18/20 18:11 04/18/20 18:15 Klor-Con M20 PO 04/18/20 18:12 20 meq ONETIME ONE Administration Sodium Chloride 10 ml 04/18/20 16:14 04/18/20 17:15 Saline Flush FLUSH 10 ml ASDIRECTED PRN Administration Keep Vein Open - Re-Assessments/Exams Free Text/Narrative Re-Assessment/Exam: 04/18/20 16:36 Patient presents to the ED for the evaluation of his chest pain and increased shortness of breath. Due to the patient's extensive cardiac history I did discuss the patient with Dr. Oreilly, and he will be in to evaluate the patient as well. Initial EKG does not demonstrate any obvious ST abnormalities or ischemia, however the baseline is very wavy which makes interpretation difficult. But Dr. Oreilly did not see any sort of acute ST changes as well. Ordered labs, chest x-ray, and RN was able to place 2 large-bore IVs for management, he was also given 2 L via nasal cannula. 04/18/20 17:51 Patient's laboratory evaluation is back, and patient's troponin is 0.018. BNP is within normal limits. Potassium is low at 2.9, anion gap is elevated at 19.9 and creatinine is also elevated at 1.5 suggesting dehydration. We will get 40 mEq p.o. potassium and 1 L of IV fluids for further management of electrolyte imbalances. I did confer with Dr. Oreilly about the troponin, he thinks that the patient would be best served to be transferred to [place] for further observation and management as he does not see why the patient would have a "trop leak". The patient himself is also okay with being transferred, and request [facility] in [place]. I will call and try to coordinate transfer for further management. 04/18/20 18:03 I was able to talk with Dr. Montero, and he requests that a 3 hour troponin be done and to give another 40 mEq potassium be given, as the patient has a history of potassium depletion. Will repeat the troponin at 19:15. 04/18/20 20:05 The repeat trop is elevated 0.255, will repeat EKG as well and start heparin per Dr. Montero's verbal orders. I will have to talk with the hospitalist Dr. Young and transfer the patient by ambulance. 04/18/20 20:26 Repeat EKG does not demonstrate any acute ST or other ischemic changes. This was read by Dr. Mosqueda. He does however appreciate a prolonged QTc from previous EKG. Departure - Departure Time of Disposition: 20:10 Disposition: DC/Tfer to Acute Hospital 02 Reason for Transfer *Q: Other (NSTEMI) Condition: Good Clinical Impression: NSTEMI (non-ST elevated myocardial infarction) Referrals: Wendy Rob MD [Primary Care Provider] - Forms: ED Department Discharge Sepsis Event Note - Evaluation Sepsis Screening Result: No Definite Risk - Focused Exam Vital Signs: Vital Signs Temp Pulse Resp BP Pulse Ox 04/18/20 16:00 95.7 F L 120 H 20 91/66 99 Date Exam was Performed: 04/18/20 Time Exam was Performed: 22:45 - My Orders Last 24 Hours: My Active Orders 04/18/20 16:14 EKG Documentation Completion [RC] STAT Peripheral IV Insertion Adult [OM.PC] Stat 04/18/20 16:15 Peripheral IV Care [RC] . DIRECTED 04/18/20 16:35 Oxygen Therapy, ED [RC] ASDIRECTED 04/18/20 19:58 EKG Documentation Completion [RC] STAT - Assessment/Plan Last 24 Hours: My Active Orders 04/18/20 16:14 EKG Documentation Completion [RC] STAT Peripheral IV Insertion Adult [OM.PC] Stat 04/18/20 16:15 Peripheral IV Care [RC] . DIRECTED 04/18/20 16:35 Oxygen Therapy, ED [RC] ASDIRECTED 04/18/20 19:58 EKG Documentation Completion [RC] STAT
[2020-04-18] MEDS ORDERED: LORazepam 2 MG/ML SDV IVPUSH ONE ×2 (16:39→20:44)
[2020-04-18] MEDS ORDERED: Potassium Chloride 20 MEQ Tab.ER PO ONE ×2 (17:35→18:11)
[2020-04-18] MEDS ORDERED: Sodium Chloride 0.9% 1,000 ML IV ONE (17:35)
[2020-04-18] MEDS: Potassium Chloride 10 MEQ in Premix Bag 1 BAG IV SCH ×2 (18:16→20:12)
[2020-04-18] MEDS ORDERED: Heparin Sodium 5,000 Units/ML Vial IVPUSH ONE (20:07)
[2020-04-18] MEDS ORDERED: Nitroglycerin 2% Oint 1 GM UD Packet TOP ONE (20:15)
[2020-04-18] MEDS ORDERED: Heparin Sodium/D5W 25,000 UNITS/500 ML BAG IV SCH (20:15)
[2020-04-18] MEDS ORDERED: Magnesium Sulfate/Water 2 GM in Premix Bag 1 BAG IV ONE (20:16)
[2020-04-18] MEDS ORDERED: Sodium Chloride 0.9% 1,000 ML IV SCH (20:30)
== END 2020-04-18 21:27 ==
LOC: JD.ED 16:00
DX: I21.4 Non-ST elevation (NSTEMI) myocardial infarction (principal); E78.00 Pure hypercholesterolemia, unspecified; I10 Essential (primary) hypertension; G43.909 Migraine, unspecified, not intractable, without status migrainosus; Z88.5 Allergy status to narcotic agent; Z88.8 Allergy status to other drugs, medicaments and biological substances; Z79.82 Long term (current) use of aspirin; Z79.899 Other long term (current) drug therapy; I25.10 Atherosclerotic heart disease of native coronary artery without angina pectoris
CPT/HCPCS: 36415; 71045; 80053; 83735; 83880; 84484; 85007; 85027; 85379; 85610; 85730; 93005; 96361; 96365; 96366; 96368; 96375; 96376; 99285; A9270; J1644; J2060; J3475; J3480; J7030; 93010; 99284

== ENCOUNTER 2020-09-14 11:10 | Emergency (ER) | payer BC, OTHER ==
[2020-09-14 11:26] VITALS: BP 119/83; PULSE 72
--- NOTE | 2020-09-14 12:01 | EDM.PDOC ---
ED HPI GENERAL MEDICAL PROBLEM - General Chief Complaint: General Stated Complaint: SENT BY [place] FOR ABNORMAL BLOOD WORK Time Seen by Provider: 09/14/20 11:13 Source of Information: Reports: Patient History Limitations: Reports: No Limitations - History of Present Illness INITIAL COMMENTS - FREE TEXT/NARRATIVE: Patient is a 60 year old male who was sent to the ER from the [place] clinic with c/o cough, shortness of breath, fatigue, body aches, diarrhea and intermittent chest pain. Symptoms have been occurring since , however he does have problems with chronic shortness of breath and intermittent chest pain. He complains of an occasional dry cough. States he recently started a new cardiac medication which he assumed was causing loose stools as he has had them for humberto te a few weeks, however this week and he had some watery diarrhea which was different for him. Patient has been experiencing significant shortness of breath chronically, however states it is worse over this last weekend as well. He has an appointment to see pulmonology in October. He sees his chief port director on Friday of next week. He has a fairly extensive cardiac history with a number of stents. States he does have nitroglycerin at home as needed for chest pain, however he has not had to use it. He had an episode of chest pain yesterday, however it resolved after resting for about an hour. Denies any chest pain at this time. He has had no fever or chills. Denies abdominal pain, nausea, or vomiting. Vital signs on triage were stable. Oxygen saturation was 98% on room air, respiratory rate 23, pulse 72, temperature 97.2, blood pressure 119/83. - Related Data Allergies Allergy/AdvReac Type Severity Reaction Status Date / Time ticagrelor [From Brilinta] Allergy Paralysis Verified 09/14/20 11:25 morphine AdvReac Hypotension Verified 09/14/20 11:25 Qcdaxsq-Gax-Ltg Reductase AdvReac Muscle Verified 09/14/20 11:25 Inhibitor Aches Home Meds: Home Meds Aspirin [Adult Low Dose Aspirin EC] 81 mg PO DAILY 11/16/15 [History] Budesonide/Formoterol [Symbicort 160-4.5 MCG] 2 puff INH BID 08/06/16 [History] Cetirizine [ZyrTEC] 10 mg PO DAILY 08/06/16 [History] Fish Oil/DHA/EPA [Fish Oil 1,200 MG] 1,200 mg PO DAILY 08/06/16 [History] Ibuprofen 400 mg PO ASDIRECTED PRN 08/06/16 [History] Nitroglycerin 0.4 mg SL ASDIRECTED PRN 08/06/16 [History] diphenhydrAMINE HCL [Allergy] 25 mg PO BEDTIME PRN 08/06/16 [History] Clopidogrel [Plavix] 75 mg PO DAILY 11/21/16 [History] Acetaminophen [Tylenol Extra Strength] 1,000 mg PO ASDIRECTED PRN 02/04/18 [History] Albuterol Sulfate [Proair Respiclick] 2 puff INH Q4H PRN 02/04/18 [History] Flaxseed/Omega3,6,9/Fatty Acid [Flax Seed Oil 1,300 mg Softgel] 1 tab PO DAILY 02/04/18 [History] Metoprolol Succinate [Toprol XL] 12.5 mg PO BID 02/04/18 [History] Multivitamin [Multivitamins] 1 each PO DAILY 02/04/18 [History] Pantoprazole [ProTONIX] 40 mg PO DAILY 02/04/18 [History] Pravastatin [Pravachol] 40 mg PO BEDTIME 02/04/18 [History] Cyclobenzaprine [Flexeril] 10 mg PO TID PRN 09/25/18 [History] Fish Oil/DHA/EPA [Fish Oil 1,200 MG] 1,200 mg PO DAILY 09/25/18 [History] Lisinopril/Hydrochlorothiazide [Lisinopril-Hctz 20-25 mg Tab] 0.5 tab PO DAILY 09/25/18 [History] Potassium Chloride [Klor-Con M20] 20 meq PO Q24H #3 tab.er 09/20/19 [Rx] Rizatriptan Benzoate [Rizatriptan] 1 tab PO ASDIRECTED PRN #3 tab.rapdis 01/25/20 [Rx] Past Medical History HEENT History: Reports: Allergic Rhinitis, Impaired Vision Other HEENT History: wears eyeglasses Cardiovascular History: Reports: CAD, High Cholesterol, Hypertension, [place], Stents Other Cardiovascular History: 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 Respiratory History: Reports: Asthma, Sleep Apnea Gastrointestinal History: Reports: Colon Polyp, Diverticulosis, GERD Other Gastrointestinal History: esophagitis, diverticulosis Genitourinary History: Reports: Other (See Below) Other Genitourinary History: testicular hypofunction Musculoskeletal History: Reports: Other (See Below) Other Musculoskeletal History: degenerative SI joint Neurological History: Reports: Migraines, Other (See Below) Other Neuro History: memory loss Psychiatric History: Reports: Other (See Below) Other Psychiatric History: dysthymia, dyslexia Hematologic History: Reports: Anticoagulation Therapy Other Dermatologic History: affliculitis - Infectious Disease History Infectious Disease History: Reports: Chicken Pox, Measles, Mumps - Past Surgical History HEENT Surgical History: Reports: Naso-Sinus Surgery, Tonsillectomy Cardiovascular Surgical History: Reports: Coronary Artery Stent, Other (See Below) GI Surgical History: Reports: Colonoscopy, EGD Social & Family History - Family History Family Medical History: Noncontributory - Tobacco Use Tobacco Use Status *Q: Never Tobacco User - Caffeine Use Caffeine Use: Reports: Coffee - Recreational Drug Use Recreational Drug Use: No - Living Situation & Occupation Living situation: Reports: , with Spouse ED ROS GENERAL - Review of Systems Review Of Systems: See Below Constitutional: Reports: Fatigue. Denies: Fever, Chills HEENT: Reports: No Symptoms Respiratory: Reports: Shortness of Breath, Cough. Denies: Wheezing Cardiovascular: Reports: Chest Pain, Dyspnea on Exertion. Denies: Palpitations, Syncope Endocrine: Reports: No Symptoms GI/Abdominal: Reports: Diarrhea. Denies: Abdominal Pain, Nausea, Vomiting : Reports: No Symptoms Musculoskeletal: Reports: No Symptoms Skin: Reports: No Symptoms Neurological: Reports: No Symptoms Psychiatric: Reports: No Symptoms Hematologic/Lymphatic: Reports: No Symptoms Immunologic: Reports: No Symptoms ED EXAM, GENERAL - Physical Exam Exam: See Below General Appearance: Alert, WD/WN, No Apparent Distress Respiratory/Chest: No Respiratory Distress, Lungs Clear, Normal Breath Sounds, No Accessory Muscle Use, Chest Non-Tender Cardiovascular: Normal Peripheral Pulses, Regular Rate, Rhythm, No Edema, No Gallop, No JVD, No Murmur, No Rub GI/Abdominal: Normal Bowel Sounds, Soft, Non-Tender, No Organomegaly, No Distention, No Abnormal Bruit, No Mass Neurological: Alert, Oriented, CN II-XII Intact, Normal Cognition, Normal Gait, Normal Reflexes, No Motor/Sensory Deficits Psychiatric: Normal Affect, Normal Mood Skin Exam: Warm, Dry, Intact, Normal Color, No Rash #1 Interpretation EKG Date: 09/14/20 Time: 11:31 Rhythm: NSR Rate (Beats/Min): 76 [place]: Normal P-Wave: Present QRS: Normal ST-T: Normal QT: Normal Course - Vital Signs Last Recorded V/S: Last Vital Signs Temp 97.2 F 09/14/20 11:20 Pulse 72 09/14/20 11:20 Resp 23 H 09/14/20 11:20 BP 119/83 09/14/20 11:20 Pulse Ox 98 09/14/20 11:20 - Orders/Labs/Meds Orders: Active Orders 24 hr Category Date Time Status Chest 1V Frontal [CR] Stat Exams 09/14/20 11:26 Once CORONAVIRUS COVID-19 PCR PHL Routine Lab 09/14/20 12:50 Received CULTURE BLOOD [BC] Stat Lab 09/14/20 11:50 Received CULTURE BLOOD [BC] Stat Lab 09/14/20 11:50 Received Blood Culture x2 Reflex Set [OM.PC] Stat Oth 09/14/20 11:28 Ordered Labs: Laboratory Tests 09/14/20 09/14/20 09/14/20 Range/Units 11:25 11:25 11:25 WBC 5.83 (4.23-9.07) K/mm3 RBC 4.95 (4.63-6.08) M/mm3 Hgb 15.9 (13.7-17.5) gm/dl Hct 44.9 (40.1-51.0) % MCV 90.7 (79.0-92.2) fl MCH 32.1 (25.7-32.2) pg MCHC 35.4 (32.2-35.5) g/dl RDW Std Deviation 42.3 (35.1-43.9) fL Plt Count 286 (163-337) K/mm3 MPV 8.5 L (9.4-12.3) fl Neutrophils % (Manual) 61 H (40-60) % Band Neutrophils % 0 (0-10) % Lymphocytes % (Manual) 30 (20-40) % Atypical Lymphs % 0 % Monocytes % (Manual) 7 (2-10) % Eosinophils % (Manual) 2 (0.8-7.0) % Basophils % (Manual) 0 L (0.2-1.2) Platelet Estimate Adequate RBC Morph Comment Normal PT 12.1 H (9.7-11.7) SECONDS INR 1.13 APTT 28 (22-31) SECONDS D-Dimer, Quantitative < 0.19 L (0.19-0.50) mg/L Sodium (136-145) mEq/L Potassium (3.5-5.1) mEq/L Chloride (98-107) mEq/L Carbon Dioxide (21-32) mEq/L Anion Gap (5-15) BUN (7-18) mg/dL Creatinine (0.7-1.3) mg/dL Est Cr Clr Drug Dosing mL/min Estimated GFR (MDRD) (>60) mL/min BUN/Creatinine Ratio (14-18) Glucose (74-106) mg/dL Lactic Acid (0.4-2.0) mmol/L Calcium (8.5-10.1) mg/dL Magnesium (1.8-2.4) mg/dl Ferritin (26-388) ng/ml Total Bilirubin (0.2-1.0) mg/dL AST (15-37) U/L ALT (16-63) U/L Alkaline Phosphatase (46-116) U/L Lactate Dehydrogenase (85-227) U/L Troponin I (0.00-0.056) ng/mL C-Reactive Protein 0.4 (<1.0) mg/dL NT-Pro-B Natriuret Pep (0-125) pg/mL Total Protein (6.4-8.2) g/dl Albumin (3.4-5.0) g/dl Globulin gm/dL Albumin/Globulin Ratio (1-2) 09/14/20 09/14/20 09/14/20 Range/Units 11:25 11:25 11:25 WBC (4.23-9.07) K/mm3 RBC (4.63-6.08) M/mm3 Hgb (13.7-17.5) gm/dl Hct (40.1-51.0) % MCV (79.0-92.2) fl MCH (25.7-32.2) pg MCHC (32.2-35.5) g/dl RDW Std Deviation (35.1-43.9) fL Plt Count (163-337) K/mm3 MPV (9.4-12.3) fl Neutrophils % (Manual) (40-60) % Band Neutrophils % (0-10) % Lymphocytes % (Manual) (20-40) % Atypical Lymphs % % Monocytes % (Manual) (2-10) % Eosinophils % (Manual) (0.8-7.0) % Basophils % (Manual) (0.2-1.2) Platelet Estimate RBC Morph Comment PT (9.7-11.7) SECONDS INR APTT (22-31) SECONDS D-Dimer, Quantitative (0.19-0.50) mg/L Sodium 134 L (136-145) mEq/L Potassium 3.4 L (3.5-5.1) mEq/L Chloride 98 (98-107) mEq/L Carbon Dioxide 24 (21-32) mEq/L Anion Gap 15.4 H (5-15) BUN 14 (7-18) mg/dL Creatinine 1.5 H (0.7-1.3) mg/dL Est Cr Clr Drug Dosing 57.17 mL/min Estimated GFR (MDRD) 48 (>60) mL/min BUN/Creatinine Ratio 9.3 L (14-18) Glucose 149 H (74-106) mg/dL Lactic Acid (0.4-2.0) mmol/L Calcium 8.9 (8.5-10.1) mg/dL Magnesium 1.9 (1.8-2.4) mg/dl Ferritin 58 (26-388) ng/ml Total Bilirubin 0.6 (0.2-1.0) mg/dL AST 19 (15-37) U/L ALT 43 (16-63) U/L Alkaline Phosphatase 65 (46-116) U/L Lactate Dehydrogenase 172 (85-227) U/L Troponin I < 0.017 (0.00-0.056) ng/mL C-Reactive Protein (<1.0) mg/dL NT-Pro-B Natriuret Pep 47 (0-125) pg/mL Total Protein 7.7 (6.4-8.2) g/dl Albumin 3.8 (3.4-5.0) g/dl Globulin 3.9 gm/dL Albumin/Globulin Ratio 1.0 (1-2) 10/15/20 Range/Units 11:50 WBC (4.23-9.07) K/mm3 RBC (4.63-6.08) M/mm3 Hgb (13.7-17.5) gm/dl Hct (40.1-51.0) % MCV (79.0-92.2) fl MCH (25.7-32.2) pg MCHC (32.2-35.5) g/dl RDW Std Deviation (35.1-43.9) fL Plt Count (163-337) K/mm3 MPV (9.4-12.3) fl Neutrophils % (Manual) (40-60) % Band Neutrophils % (0-10) % Lymphocytes % (Manual) (20-40) % Atypical Lymphs % % Monocytes % (Manual) (2-10) % Eosinophils % (Manual) (0.8-7.0) % Basophils % (Manual) (0.2-1.2) Platelet Estimate RBC Morph Comment PT (9.7-11.7) SECONDS INR APTT (22-31) SECONDS D-Dimer, Quantitative (0.19-0.50) mg/L Sodium (136-145) mEq/L Potassium (3.5-5.1) mEq/L Chloride (98-107) mEq/L Carbon Dioxide (21-32) mEq/L Anion Gap (5-15) BUN (7-18) mg/dL Creatinine (0.7-1.3) mg/dL Est Cr Clr Drug Dosing mL/min Estimated GFR (MDRD) (>60) mL/min BUN/Creatinine Ratio (14-18) Glucose (74-106) mg/dL Lactic Acid 1.5 (0.4-2.0) mmol/L Calcium (8.5-10.1) mg/dL Magnesium (1.8-2.4) mg/dl Ferritin (26-388) ng/ml Total Bilirubin (0.2-1.0) mg/dL AST (15-37) U/L ALT (16-63) U/L Alkaline Phosphatase (46-116) U/L Lactate Dehydrogenase (85-227) U/L Troponin I (0.00-0.056) ng/mL C-Reactive Protein (<1.0) mg/dL NT-Pro-B Natriuret Pep (0-125) pg/mL Total Protein (6.4-8.2) g/dl Albumin (3.4-5.0) g/dl Globulin gm/dL Albumin/Globulin Ratio (1-2) - Re-Assessments/Exams Free Text/Narrative Re-Assessment/Exam: Patient is a 60-year-old male presenting to the emergency department with complaints of worsening shortness of breath, cough, fatigue, diarrhea, and intermittent chest pain. Chest pain is not present at the time of my exam. Oxygen saturations are good at 98% on room air. Will complete a Covid work-up. I will wait to see with the results of his labs are to decide if he requires a 1 hour Covid test or if a [facility] send out test would be appropriate. 09/14/20 12:28 Otology was grossly unremarkable with the exception of her potassium being very slightly low at 3.4, anion gap 15.4, and creatinine 1.5. His troponin, D-dimer, ferritin, LDH, proBNP, and CRP are all normal. Chest x-ray was normal. EKG showed no acute ischemia. My suspicion for Covid is low, however we will complete a state send out Covid test today. Discharge instructions as documented. Departure - Departure Time of Disposition: 12:29 Disposition: Home, Self-Care 01 Condition: Good Clinical Impression: Shortness of breath, Cough - Discharge Information *PRESCRIPTION DRUG MONITORING PROGRAM REVIEWED*: No *COPY OF PRESCRIPTION DRUG MONITORING REPORT IN PATIENT JEM: No Instructions: Shortness of Breath, Adult, [id number], Cough, Adult, [id number] Referrals: Brooklynn Lopez, [facility] [Primary Care Provider] - Forms: ED Department Discharge Additional Instructions: You were seen in the emergency department today for cough, shortness of breath, fatigue, and diarrhea. Your work-up included blood work, an EKG of your heart, and a chest x-ray. Results of your work-up were normal. Your chest x-ray shows no signs of pneumonia. Your EKG showed no abnormalities. Your cardiac enzymes were all normal. A coronavirus test has been completed today you will be notified when results are available which is generally 24 to 72 hours. Recommend that you isolate until results are available and your symptoms have improved. Follow-up with your chief port director and health concierge as currently scheduled. If you experience any new or worsening symptoms of concern, please do not hesitate to return to the emergency department. Sepsis Event Note (ED) - Evaluation Sepsis Screening Result: No Definite Risk - Focused Exam Vital Signs: Vital Signs Temp Pulse Resp BP Pulse Ox 09/14/20 11:20 97.2 F 72 23 H 119/83 98 - My Orders Last 24 Hours: My Active Orders 09/14/20 11:26 Chest 1V Frontal [CR] Stat 09/14/20 11:28 Blood Culture x2 Reflex Set [OM.PC] Stat 09/14/20 11:50 CULTURE BLOOD [BC] Stat CULTURE BLOOD [BC] Stat 09/14/20 12:50 CORONAVIRUS COVID-19 PCR PHL Routine - Assessment/Plan Last 24 Hours: My Active Orders 09/14/20 11:26 Chest 1V Frontal [CR] Stat 09/14/20 11:28 Blood Culture x2 Reflex Set [OM.PC] Stat 09/14/20 11:50 CULTURE BLOOD [BC] Stat CULTURE BLOOD [BC] Stat 09/14/20 12:50 CORONAVIRUS COVID-19 PCR PHL Routine
== END 2020-09-14 13:00 | disposition home or self-care (01) ==
LOC: JD.ED 11:10
DX: R06.02 Shortness of breath (principal); R05 Cough; R53.83 Other fatigue; R07.9 Chest pain, unspecified; R19.7 Diarrhea, unspecified; I10 Essential (primary) hypertension; E78.00 Pure hypercholesterolemia, unspecified; I25.10 Atherosclerotic heart disease of native coronary artery without angina pectoris; I25.2 Old myocardial infarction; J45.909 Unspecified asthma, uncomplicated; K21.9 Gastro-esophageal reflux disease without esophagitis; Z95.5 Presence of coronary angioplasty implant and graft; Z88.5 Allergy status to narcotic agent; Z88.8 Allergy status to other drugs, medicaments and biological substances; Z79.82 Long term (current) use of aspirin; Z79.02 Long term (current) use of antithrombotics/antiplatelets; Z79.899 Other long term (current) drug therapy; Z20.828 Contact with and (suspected) exposure to other viral communicable diseases
CPT/HCPCS: 36415; 71045; 80053; 82728; 83605; 83615; 83735; 83880; 84484; 85007; 85027; 85379; 85610; 85730; 86140; 87040; 93005; 93010; 99282; 99285-25; U0002

== ENCOUNTER 2020-11-27 10:09 | Day surgery (SDC) | payer OTHER, BC ==
[~2020-11-27 10:09] MED LIST: Lactated Ringers 1,000 ML IV SCH; Lidocaine 1%/Sod Bicarbonate in NS 8.4% 1 ML Syringe IDERM PRN; Sodium Chloride 0.9% 10 ML Syringe FLUSH PRN
--- NOTE | 2020-11-27 10:38 | PCM.PREANE ---
Preanesthetic Assessment - Anesthesia/Transfusion/Family Hx Anesthesia History: Prior Anesthesia Without Reaction Family History of Anesthesia Reaction: No Transfusion History: No Prior Transfusion(s) Intubation History: Unknown - Review of Systems General: No Symptoms Pulmonary: No Symptoms Cardiovascular: No Symptoms Gastrointestinal: No Symptoms Neurological: No Symptoms Other: Reports: None - Physical Assessment NPO Status Date: 11/26/20 NPO Status Time: 22:00 ASA Class: 3 Mental Status: Alert & Oriented x3 Airway Class: Mallampati = 2 Dentition: Reports: Normal Dentition Thyro-Mental Finger Breadths: 3 Mouth Opening Finger Breadths: 3 ROM/Head Extension: Full Lungs: Clear to Auscultation, Normal Respiratory Effort Cardiovascular: Regular Rate, Regular Rhythm - Allergies Allergies/Adverse Reactions: Allergies Allergy/AdvReac Type Severity Reaction Status Date / Time morphine AdvReac Hypotension Verified 11/22/20 13:27 Msaifsq-Tji-Ije Reductase AdvReac Muscle Verified 11/22/20 13:27 Inhibitor Aches ticagrelor [From Brilinta] AdvReac Paralysis Verified 11/26/20 10:20 - Anesthesia Plan Beta Ladi: Metoprolol Med Last Dose Date: 11/27/20 Med Last Dose Time: 08:45 - Acknowledgements Anesthesia Type Planned: MAC Pt an Appropriate Candidate for the Planned Anesthesia: Yes Alternatives and Risks of Anesthesia Discussed w Pt/Guardian: Yes Pt/Guardian Understands and Agrees with Anesthesia Plan: Yes PreAnesthesia Questionnaire HEENT History: Reports: Allergic Rhinitis, Impaired Vision Other HEENT History: wears eyeglasses Cardiovascular History: Reports: CAD, High Cholesterol, Hypertension, [place], SOB on Exertion, Stents Other Cardiovascular History: 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 Respiratory History: Reports: Asthma, Sleep Apnea, SOB Gastrointestinal History: Reports: Colon Polyp, Diverticulosis, GERD Other Gastrointestinal History: esophagitis, diverticulosis Genitourinary History: Reports: Other (See Below) Other Genitourinary History: testicular hypofunction Musculoskeletal History: Reports: Other (See Below) Other Musculoskeletal History: degenerative SI joint Neurological History: Reports: Migraines, Other (See Below) Other Neuro History: memory loss Psychiatric History: Reports: Other (See Below) Other Psychiatric History: dysthymia, dyslexia Endocrine/Metabolic History: Reports: None Hematologic History: Reports: Anticoagulation Therapy Other Dermatologic History: affliculitis - Infectious Disease History Infectious Disease History: Reports: Chicken Pox, Measles, Mumps - Past Surgical History HEENT Surgical History: Reports: Naso-Sinus Surgery, Tonsillectomy Other HEENT Surgeries/Procedures: septoplasty Cardiovascular Surgical History: Reports: Coronary Artery Stent, Other (See Below) Other Cardiovascular Surgeries/Procedures: coronary angioplasty GI Surgical History: Reports: Colonoscopy, EGD - SUBSTANCE USE Tobacco Use Status *Q: Never Tobacco User - HOME MEDS Home Medications: Home Meds Aspirin [Adult Low Dose Aspirin EC] 81 mg PO DAILY 11/16/15 [History] Budesonide/Formoterol [Symbicort 160-4.5 MCG] 2 puff INH BID 08/06/16 [History] Cetirizine [ZyrTEC] 10 mg PO DAILY 08/06/16 [History] Fish Oil/DHA/EPA [Fish Oil 1,200 MG] 1,200 mg PO DAILY 08/06/16 [History] Ibuprofen 400 mg PO ASDIRECTED PRN 08/06/16 [History] Nitroglycerin 0.4 mg SL ASDIRECTED PRN 08/06/16 [History] diphenhydrAMINE HCL [Allergy] 25 mg PO BEDTIME PRN 08/06/16 [History] Clopidogrel [Plavix] 75 mg PO DAILY 11/21/16 [History] Acetaminophen [Tylenol Extra Strength] 1,000 mg PO ASDIRECTED PRN 02/04/18 [History] Albuterol Sulfate [Proair Respiclick] 2 puff INH Q4H PRN 02/04/18 [History] Flaxseed/Omega3,6,9/Fatty Acid [Flax Seed Oil 1,300 mg Softgel] 1 tab PO DAILY 02/04/18 [History] Metoprolol Succinate [Toprol XL] 12.5 mg PO BID 02/04/18 [History] Multivitamin [Multivitamins] 1 each PO DAILY 02/04/18 [History] Pantoprazole [ProTONIX] 40 mg PO DAILY 02/04/18 [History] Pravastatin [Pravachol] 40 mg PO BEDTIME 02/04/18 [History] Cyclobenzaprine [Flexeril] 10 mg PO TID PRN 09/25/18 [History] Fish Oil/DHA/EPA [Fish Oil 1,200 MG] 1,200 mg PO DAILY 09/25/18 [History] Lisinopril/Hydrochlorothiazide [Lisinopril-Hctz 20-25 mg Tab] 0.5 tab PO DAILY 09/25/18 [History] Potassium Chloride [Klor-Con M20] 20 meq PO Q24H #3 tab.er 09/20/19 [Rx] Rizatriptan Benzoate [Rizatriptan] 1 tab PO ASDIRECTED PRN #3 tab.rapdis 01/25/20 [Rx] - CURRENT (IN HOUSE) MEDS Current Meds: Current Medications Lactated Ringer's (Ringers, Lactated) 1,000 mls @ 125 mls/hr IV ASDIRECTED BERNARDA Stop: 11/27/20 23:00 Lidocaine/Sodium Bicarbonate (Buffered Lidocaine 1% In Ns 8.4%) 0.25 ml IDERM ONETIME PRN PRN Reason: Prior to IV Start Stop: 11/27/20 18:00 Sodium Chloride (Saline Flush) 10 ml FLUSH ASDIRECTED PRN PRN Reason: Keep Vein Open Stop: 11/27/20 18:00
[2020-11-27] MEDS ORDERED: Midazolam 1 MG/ML 2 ML SDV ONE (11:32)
[2020-11-27] MEDS ORDERED: Propofol 200 MG/20 ML SDV ONE ×2 (11:32→12:50)
[2020-11-27] MEDS ORDERED: fentaNYL 100 MCG/2 ML SDV ONE (11:32)
[2020-11-27] MEDS ORDERED: Lidocaine 1% 4 ML ONE (11:32)
--- NOTE | 2020-11-27 13:29 | PCM48HPAN ---
Post Anesthesia Note - EVALUATION WITHIN 48HRS OF ANESTHETIC Vital Signs in Normal Range: Yes Patient Participated in Evaluation: Yes Respiratory Function Stable: Yes Airway Patent: Yes Cardiovascular Function Stable: Yes Hydration Status Stable: Yes Pain Control Satisfactory: Yes Nausea and Vomiting Control Satisfactory: Yes Mental Status Recovered: Yes (states he is sleepy) Vital Signs: Last Vital Signs Temp 97.4 F 11/27/20 10:30 Pulse 87 11/27/20 10:30 Resp 20 11/27/20 10:30 BP 114/75 11/27/20 10:30 Pulse Ox 97 11/27/20 10:30 1322 66 15 97.4 106/74 92%
[2020-11-27 14:00] VITALS: BP 104/80; PULSE 66
--- NOTE | 2020-11-27 14:02 | PROC ---
DATE OF OPERATION: 11/27/2020 SURGEON: Aline Miller MD PREOPERATIVE DIAGNOSES: 1. Chronic gastroesophageal reflux disease. 2. Chronic diarrhea. POSTOPERATIVE DIAGNOSES: 1. Multiple large gastric polyps. 2. Antritis with superficial erosions. 3. Submucosal lipoma in the antrum, 5 mm. 4. Diverticulosis. OPERATION PERFORMED: 1. Esophagogastroduodenoscopy. 2. Colonoscopy. ANESTHESIA: Monitored anesthesia care. COMPLICATION: None. ESTIMATED BLOOD LOSS: Minimal. INDICATION AND CONSENT: The patient is a 60-year-old male with strong family history of ulcerative colitis in mother and in first-degree relatives. The patient has had a prolonged period of chronic diarrhea for several months, came to me for evaluation. I recommended to proceed with EGD and colonoscopy. The patient had COVID-19 diagnosed back in early October and the patient did not get hospitalized, but recovered at home, therefore procedure was postponed. By the time the patient came back to see me again for H and P update, he was doing better, however, proceeded with procedures to make sure there are no other abnormalities. Therefore, we discussed the risks, benefits, and alternatives for EGD and colonoscopy and informed consent was obtained. DETAILS OF THE PROCEDURE: The patient was taken to the procedure room, placed in left lateral decubitus position. The patient was padded appropriately and then monitored anesthesia was induced. We began with an EGD. Scope was inserted into the mouth and taken to the second portion of duodenum. Duodenum was normal. Antrum had superficial linear erosions all around the antrum. Biopsies were taken with cold forceps for histology. In the lesser curve just above the incisura, there was a small about 4 to 5 mm submucosal lipoma. Biopsies were taken with cold forceps in the mucosa as well as the deeper tissue to see if we can capture the lipoma. In the gastric body, there were numerous large and small pedunculated polyps, 4 of them appeared to be erythematous but not bleeding. On retroflexion, there were some polyps in the fundus and no polyps in the cardia. There was no indication of obvious hiatal hernia. Distal, mid, and proximal esophagus appeared normal. There was slight tortuosity in the distal and mid esophagus. Then, we went back to the stomach and decided to remove some of the largest polyps. We used hot snare. About 8 large about 1 to 3 cm polyps were removed with hot snare and about 5 or 6 of them were retrieved with Rubio Net for pathologic evaluation. Smaller polyps were too numerous to remove, therefore they were left in the stomach. Once this was done, we inspected the stomach and there was no active bleeding from prior biopsies. Therefore, air was suctioned from the stomach and the procedure was concluded. Next, we turned our attention to colonoscopy. We started with the perianal exam and digital rectal examination. There were internal hemorrhoids grade II, but nothing else during the perianal exam. Then, we put a scope and taken all the way to the cecum. Ileocecal valve and appendiceal orifice were photographed and the colon was examined. Prep was good and the colon examined from the cecum all the way to the anal opening. There were no polyps that were found. There were no other abnormalities. Due to the patient's prior history of chronic diarrhea, we did random biopsies from the ascending colon, transverse colon, sigmoid colon, and rectum for pathologic exam for any abnormalities. On retroflexion, there were no abnormalities. Air was suctioned out and procedure was concluded. The patient will be allowed to go home. The patient will follow up with me in 2 weeks for pathologic examination. MMODAL /[id number] DINORA
== END 2020-11-27 14:54 | disposition home or self-care (01) ==
LOC: JD.SDS 10:09
PROVIDERS: ATTEND Surgery
DX: K52.9 Noninfective gastroenteritis and colitis, unspecified (principal); K57.30 Diverticulosis of large intestine without perforation or abscess without bleeding; K31.7 Polyp of stomach and duodenum; K21.9 Gastro-esophageal reflux disease without esophagitis; K29.50 Unspecified chronic gastritis without bleeding; K31.89 Other diseases of stomach and duodenum; I25.10 Atherosclerotic heart disease of native coronary artery without angina pectoris; I10 Essential (primary) hypertension; E78.00 Pure hypercholesterolemia, unspecified; E78.5 Hyperlipidemia, unspecified; I25.2 Old myocardial infarction; Z86.73 Personal history of transient ischemic attack (TIA), and cerebral infarction without residual deficits; J45.909 Unspecified asthma, uncomplicated; G47.30 Sleep apnea, unspecified; Z95.5 Presence of coronary angioplasty implant and graft; Z98.890 Other specified postprocedural states; Z79.899 Other long term (current) drug therapy; Z88.5 Allergy status to narcotic agent; Z88.8 Allergy status to other drugs, medicaments and biological substances
CPT/HCPCS: 43239; 43251; 45380; 88305; 88342; J2001; J2250; J2704; J3010; J7120; 00813

== ENCOUNTER 2021-03-30 15:15 | Emergency (ER) | payer OTHER, BC ==
[2021-03-30 15:22] VITALS: BP 122/90; PULSE 87
--- NOTE | 2021-03-30 17:30 | EDM.PDOCBH ---
ED HPI GENERAL MEDICAL PROBLEM - General Chief Complaint: Behavioral/Psych Stated Complaint: [facility] Time Seen by Provider: 03/30/21 16:46 Source of Information: Reports: Patient, Family (spouse) History Limitations: Reports: No Limitations - History of Present Illness INITIAL COMMENTS - FREE TEXT/NARRATIVE: 61-year-old male presents to the ED per [facility] ambulance from the [facility] here in [place]. Patient is under a great deal of life stress issues primarily financial. Patient lost his job in December of this year. He received a small severance package which tightened him over for a month or 2. He has been trying to apply for unemployment insurance which he is entitled to but has been unable to get a hold of anybody through the job service program either locally or through the centralized services offered in [place]. Patient reached the end of the line today when he tried to speak with job service lady here in [place] who closed the door and locked it and pulled the blind down in front of him without offering any assistance. He felt like he wanted to get in his vehicle and drive through the building to get her attention. Patient admits to a markedly disrupted sleep pattern and insomnia for several weeks. He has sleep apnea and usually when he puts his CPAP on machine 9 he is asleep within a minute or 2. He states he has not slept well for probably 6 to 8 weeks. He has a son with attention deficit disorder who is fairly demanding of his time and energy. He is suffering severe financial hardship at this time. After frustration with job services today he went [place] the [place] where he did receive his out from nurse practitioner at that facility. They tried to get in contact with mental health services offered through the [place] system but were unable to get anyone online after an hour and a half. He has essentially spent an hour and a half at the [place] clinic with vitals being checked etc. It was felt due to his elevated blood pressure and his near syncopal event at the facility that he should be transported to the ER per [facility] and the PA did call the ambulance which brought him to our facility. I spent a long time talking with the patient to ascertain what was happening in his life to cause such distress. Became apparent that there are multiple life situation problems but primarily financial issues at this time. He has PTSD and has tried several medications in the past which have caused him to feel mentally foggy and he feels he already has a significantly impaired memory due to PTSD and combat. He did Stoxil he denies feeling suicidal or homicidal at this time. He admits that he is suffering anxiety and severe frustration and anger at his inability to contact anybody to speak to through the job services program. He did become apparent that he was able to speak with somebody through job services late this afternoon who did assist him to the best of their ability but is unclear whether all of the information they required with identification issues etc. occurred. He has some hope that finally he got appropriate assistance that he has been looking for for the last 3 months. It is apparent that he is suffering from insomnia due to anxiety and states his brain just simply will not shut off. He is not exhibiting any psychosis. He is not exhibiting any manic behaviors. He is simply severely frustrated with numerous life stressors. Onset: Other (Patient has been severely stressed for the last 3 months but things came to ahead today.) Duration: Day(s): ([place] stressors for the better part of 3 months.), Week(s):, Getting Worse Location: Reports: Generalized, Other ([place] anxiety. Chronic insomnia mild depression severe frustration and anger. Feeling out of control.) Quality: Reports: Other (Your frustration and anger and feeling loss of control.) Severity: Severe Improves with: Reports: None Worsens with: Reports: Other (Be try me he tries to contact job services in attempt to obtain unemployment benefits it creates further frustration and anger) Context: Reports: Other (Multiple life situation problems). Denies: Activity (.), Exercise, Lifting, Sick Contact, Trauma Associated Symptoms: Reports: Loss of Appetite, Malaise, Weakness. Denies: Confusion, Chest Pain, Cough, cough w sputum, Diaphoresis, Fever/Chills, Headaches, Nausea/Vomiting, Rash, Seizure, Shortness of Breath, Syncope Treatments OFFICE CLERK ROUTINE: Reports: Other (see below) (He has prescribed medications.) - Related Data Allergies Allergy/AdvReac Type Severity Reaction Status Date / Time morphine AdvReac Hypotension Verified 03/30/21 15:22 Hyfbzrh-Hca-Qvb Reductase AdvReac Muscle Verified 03/30/21 15:22 Inhibitor Aches ticagrelor [From Brilinta] AdvReac Paralysis Verified 03/30/21 15:22 Home Meds: Home Meds Aspirin [Adult Low Dose Aspirin EC] 81 mg PO DAILY 12/17/15 [History] Cetirizine [ZyrTEC] 10 mg PO DAILY 08/06/16 [History] Ibuprofen 400 mg PO Q6H PRN 08/06/16 [History] Nitroglycerin 0.4 mg SL ASDIRECTED PRN 08/06/16 [History] diphenhydrAMINE HCL [Allergy] 25 mg PO BEDTIME PRN 08/06/16 [History] Clopidogrel [Plavix] 75 mg PO DAILY 11/21/16 [History] Acetaminophen [Tylenol Extra Strength] 1,000 mg PO ASDIRECTED PRN 02/04/18 [History] Albuterol Sulfate [Proair Respiclick] 2 puff INH Q4H PRN 02/04/18 [History] Flaxseed/Omega3,6,9/Fatty Acid [Flax Seed Oil 1,300 mg Softgel] 1 tab PO DAILY 02/04/18 [History] Metoprolol Succinate [Toprol XL] 50 mg PO DAILY 02/04/18 [History] Pravastatin [Pravachol] 40 mg PO BEDTIME 02/04/18 [History] Fish Oil/DHA/EPA [Fish Oil 1,200 MG] 1,200 mg PO DAILY 09/25/18 [History] Lisinopril/Hydrochlorothiazide [Lisinopril-Hctz 20-25 mg Tab] 20 mg PO DAILY 09/25/18 [History] Cholecalciferol (Vitamin D3) [Vitamin D3] 2,000 unit PO DAILY 11/27/20 [History] Ezetimibe [Zetia] 10 mg PO DAILY 11/27/20 [History] Omeprazole 20 mg PO DAILY 03/30/21 [History] Potassium Chloride [Klor-Con M20] 20 meq PO DAILY 03/30/21 [History] Zolpidem Tartrate [Ambien] 10 mg PO DAILY PRN #12 tablet 03/30/21 [Rx] Past Medical History HEENT History: Reports: Allergic Rhinitis, Impaired Vision Other HEENT History: wears eyeglasses Cardiovascular History: Reports: CAD, High Cholesterol, Hypertension, HI, SOB on Exertion, Stents (Patient states that he has approximately 13 stents in his heart. They have been placed by Dr. Wright at [facility] in [place] and Dr. Landeros in [place] they indicate that they have not been able to stent all vessels that are partially occluded with plaque. 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 Respiratory History: Reports: Asthma, Sleep Apnea, SOB Gastrointestinal History: Reports: Colon Polyp, Diverticulosis, GERD Other Gastrointestinal History: esophagitis, diverticulosis Genitourinary History: Reports: Other (See Below) Other Genitourinary History: testicular hypofunction Musculoskeletal History: Reports: Other (See Below) Other Musculoskeletal History: degenerative SI joint Neurological History: Reports: Migraines, Other (See Below) Other Neuro History: memory loss Psychiatric History: Reports: Other (See Below) Other Psychiatric History: dysthymia, dyslexia Endocrine/Metabolic History: Reports: None Hematologic History: Reports: Anticoagulation Therapy Other Dermatologic History: affliculitis - Infectious Disease History Infectious Disease History: Reports: Chicken Pox, Measles, Mumps - Past Surgical History Head Surgeries/Procedures: Reports: None HEENT Surgical History: Reports: Naso-Sinus Surgery, Tonsillectomy Other HEENT Surgeries/Procedures: septoplasty Cardiovascular Surgical History: Reports: Coronary Artery Stent, Other (See Below) Other Cardiovascular Surgeries/Procedures: coronary angioplasty Respiratory Surgical History: Reports: None GI Surgical History: Reports: Colonoscopy, EGD Other GI Surgeries/Procedures: esophageal dilation Male Surgical History: Reports: None Endocrine Surgical History: Reports: None Neurological Surgical History: Reports: None Musculoskeletal Surgical History: Reports: None Oncologic Surgical History: Reports: None Dermatological Surgical History: Reports: None Social & Family History - Family History Family Medical History: No Pertinent Family History - Tobacco Use Tobacco Use Status *Q: Never Tobacco User - Caffeine Use Caffeine Use: Reports: Coffee - Recreational Drug Use Recreational Drug Use: No - Living Situation & Occupation Living situation: Reports: , with Spouse ED ROS GENERAL - Review of Systems Review Of Systems: See Below Constitutional: Reports: Malaise, Weakness, Fatigue, Decreased Appetite. Denies: Fever, Chills HEENT: Reports: Glasses Respiratory: Reports: Shortness of Breath, Cough (Rare). Denies: Wheezing, Pleuritic Chest Pain, Sputum, Hemoptysis ( nonproductive cough) Cardiovascular: Reports: Chest Pain (Very rare central chest pain.), Blood Pressure Problem, Dyspnea on Exertion. Denies: Claudication, Edema, Lightheadedness, Orthopnea, Palpitations Endocrine: Reports: Fatigue GI/Abdominal: Reports: Constipation (Vaginal problems with constipation.) : Reports: Frequency, Other (Teary at x2 or 3. Known BPH.) Musculoskeletal: Reports: Neck Pain, Back Pain, Joint Pain (Knees hips shoulders at times.) Skin: Reports: Bruising (Is easily due to being on antiplatelet medication Plavix and aspirin) Neurological: Reports: Headache, Other (He feels he has a markedly impaired memory going back over the last 20 years.). Denies: Confusion, Dizziness, Trouble Speaking, Difficulty Walking Psychiatric: Reports: Anxiety, Depression, Other (PTSD. He was a combat and the goal for) Hematologic/Lymphatic: Reports: No Symptoms Immunologic: Reports: No Symptoms ED EXAM, BEHAVIORAL HEALTH - Physical Exam Exam: See Below Exam Limited By: No Limitations General Appearance: Alert, WD/WN, Anxious, Moderate Distress, Other (Temperature is 36.7. Heart rate is 87 and sinus. Respiratory was 22/min with pulse ox of 100% room air. BP 122/90) Eye Exam: Bilateral Eye: Normal Inspection (No blepharal pallor or scleral icterus.), PERRL Throat/Mouth: Normal Inspection, Normal Lips, Normal Teeth, Normal Oropharynx Neck: Normal Inspection, Supple, Non-Tender, Full Range of Motion. No: Carotid Bruit, Lymphadenopathy (L), Lymphadenopathy (R), Thyromegaly Respiratory/Chest: Lungs Clear, Normal Breath Sounds, No Accessory Muscle Use, Respiratory Distress (Mild tachypnea that settled with time. Some of was due to hyperventilation.). No: Decreased Breath Sounds Cardiovascular: Normal Peripheral Pulses, Regular Rate, Rhythm, No Edema, No Gallop, No Murmur GI/Abdominal: Normal Bowel Sounds, Soft, Non-Tender, No Organomegaly, No Mass, Pelvis Stable Extremities: Normal Inspection, Normal Range of Motion, Non-Tender, No Pedal Edema Neurological: Alert, CN II-XII Intact, Normal Cognition, Normal Gait, No Motor/Sensory Deficits, Oriented x 3. No: Normal Mood/Affect Psychiatric: Alert, Normal Cognition, Oriented, Agitated, Other. No: Poor Eye Contact, Uncooperative, Withdrawn, Flight of Ideas, Homicidal Thoughts, Phobic, Taoist Delusions, Suicidal Plan, Suicidal Thoughts, Tangential Thoughts, Auditory Hallucinations, Visual Hallucinations, Grandiose Thoughts, Pressured Speech, Paranoid Thoughts, Threatening Behavior Skin Exam: Warm (Simply frustrated and just indicated off his chest.), Dry, Intact, Normal color, No rash COURSE, BEHAVIORAL HEALTH COMP - Course Vital Signs: Last Vital Signs Temp 36.7 C 03/30/21 15:17 Pulse 87 03/30/21 15:17 Resp 22 H 03/30/21 15:17 BP 122/90 03/30/21 15:17 Pulse Ox 100 03/30/21 15:17 Orders, Labs, Meds: Laboratory Tests 03/30/21 Range/Units 15:27 Urine Opiates Screen Negative (CROYUP=684) Ur Buprenorphine Scrn Negative (CUTOFF=10) Ur Oxycodone Screen Negative (DEA2GO=098) Urine Methadone Screen Negative (RJE5BZ=182) Ur Propoxyphene Screen Negative (ZGPLZZ=700) Ur Barbiturates Screen Negative (JEGRXF=703) Ur Tricyclics Screen Negative (BVEEMZ=615) Ur Phencyclidine Scrn Negative (CUTOFF=25) Ur Amphetamine Screen Negative (MIPDAN=352) U Methamphetamines Scrn Negative (TIMQIS=277) U Benzodiazepines Scrn Negative (FQGFPQ=813) U Cocaine Metab Screen Negative (FFWRCX=754) U Marijuana (THC) Screen Negative (CUTOFF=50) Re-Assessment/Re-Exam: 61-year-old male presents to the ED per [place] [facility] from [place]. Patient is under a great deal of life stressors including major financial stress. This is created a great deal of anxiety, frustration, anger with job service this program. [place]. Patient lost his job in December of this year and did receive a short severance package. He has been unable to contact anybody through job services program for over 3 months. He is thus under significant financial duress. His health is bad with over 13 stents placed in his heart for severe coronary artery disease and previous HI x2. He did not develop any chest pain today. After frustration with job services here in [place] he felt like he may want to drive his truck through the [employer] building into the office out of frustration when the lady that he was trying to obtain help from close the door in his face and locked it and pulled the blinds down in front of him. He subsequently went to the [place] clinic [place] where he receives care and vital signs were checked and he was calmed down by physician assistant health educator there. They tried to contact mental health line [facility] but were unable to get through after an hour and a half. Patient had a near syncopal/collapse at the [place] clinic and therefore the [facility] was summoned to bring him to the ED. It took me a while to get into his room to see him and he had calmed himself down a good deal prior to my arrival. He was never having any chest pain and showed no arrhythmias or significant elevation of his blood pressure while in the ED. Lungs were clear to all station percussion no signs of significant congestive failure. It was felt that after 45 minutes to an hour of discussion with the patient that his problems were psychological with significant anxiety worry and stress creating insomnia and mild depression. He had no homicidal or suicidal thought ideation. He is not showing any evidence of psychosis or saba. He has tried Cymbalta in the past for PTSD but felt it made him too mentally foggy after period of 2 weeks and it was discontinued. I feel that the major problem he is experiencing at this point time is exhaustion from not sleeping for several weeks. I am going to therefore place him on Ambien 10 mg once daily at bedtime to be used on a as needed basis to achieve a good night sleep. 12 tablets were provided through prescription today. He is to follow-up with the [place] clinic next week. He may well benefit from small dose of antidepressant such as Escitalopram if his symptoms continue and may benefit from a dose of clonazepam 1 mg at bedtime to help sleep if Ambien is not working as it often does not help much after 10 days of use. Departure - Departure Time of Disposition: 17:55 Disposition: Home, Self-Care 01 Condition: Fair Clinical Impression: Anxiety as acute reaction to exceptional stress Depression Qualifiers: Depression Type: reactive depression Qualified Code(s): F32.9 - Major depressive disorder, single episode, unspecified Insomnia Qualifiers: Insomnia type: unspecified Qualified Code(s): G47.00 - Insomnia, unspecified - Discharge Information *PRESCRIPTION DRUG MONITORING PROGRAM REVIEWED*: Not Applicable *COPY OF PRESCRIPTION DRUG MONITORING REPORT IN PATIENT JEM: Not Applicable Prescriptions: Zolpidem Tartrate [Ambien] 10 mg PO DAILY PRN #12 tablet PRN Reason: Insomnia Referrals: Wendy Rob MD [Primary Care Provider] - Forms: ED Department Discharge Additional Instructions: Evaluation in the emergency room today in regards to overwhelming duress/stress for the last several months which culminated today in severe frustration and collapse I believe out of exhaustion. Chronic loss of sleep or insomnia has contributed to this problem as well as multiple life duration problems which include loss of job in December of this year and inability to get a hold of anybody through job services etc. After lengthy discussion I believe your primary problem is exhaustion. When we do not sleep at night we do not make the neuro chemicals in the brain that talked each other throughout the day. Sleep is important to help get us through the next day's activity. Chronic sleep deprivation will create anxiety and depression symptoms. As you indicated recent trial of duloxetine or Cymbalta made you feel like you cannot think straight. I therefore will not contemplate starting any antidepressants at this time. It is my suggestion is to use Ambien 10mg at bedtime about 20-30 min before planned sleep. If you experience anxiety and frustration during the day you may take 1 tablet every 8 hours as needed. My hope is that over the next 5- 7 days with several good nights of sleep this will help reduce anxiety and depression symptoms. [facility] in 10 to 14 days time so that they can reevaluate your symptoms and change medications if not needed. Sepsis Event Note (ED) - Evaluation Sepsis Screening Result: No Definite Risk - Focused Exam Vital Signs: Vital Signs Temp Pulse Resp BP Pulse Ox 03/30/21 15:17 36.7 C 87 22 H 122/90 100
== END 2021-03-30 18:35 | disposition home or self-care (01) ==
LOC: JD.ED 15:15
DX: F32.9 Major depressive disorder, single episode, unspecified (principal); G47.00 Insomnia, unspecified; F41.9 Anxiety disorder, unspecified; F43.0 Acute stress reaction; I25.10 Atherosclerotic heart disease of native coronary artery without angina pectoris; E78.00 Pure hypercholesterolemia, unspecified; I10 Essential (primary) hypertension; I25.2 Old myocardial infarction; K21.9 Gastro-esophageal reflux disease without esophagitis; J45.909 Unspecified asthma, uncomplicated; Z88.5 Allergy status to narcotic agent; Z88.8 Allergy status to other drugs, medicaments and biological substances; Z79.82 Long term (current) use of aspirin; Z79.02 Long term (current) use of antithrombotics/antiplatelets; Z79.899 Other long term (current) drug therapy
CPT/HCPCS: 80306; 99283; 99284

== ENCOUNTER 2022-02-26 14:37 | Emergency (ER) | payer OTHER ==
[2022-02-26] MEDS ORDERED: Sodium Chloride 0.9% 10 ML Syringe FLUSH PRN (15:04)
[2022-02-26] MEDS ORDERED: Aspirin 81 MG Tab.Chew PO ONE (15:12)
[2022-02-26] MEDS ORDERED: Sodium Chloride 0.9% 1,000 ML IV SCH (15:15)
[2022-02-26 18:39] VITALS: BP 94/62; PULSE 75
== END 2022-02-26 18:37 | disposition home or self-care (01) ==
LOC: JD.ED 14:37
DX: R07.89 Other chest pain (principal); R55 Syncope and collapse; I25.10 Atherosclerotic heart disease of native coronary artery without angina pectoris; E78.00 Pure hypercholesterolemia, unspecified; I10 Essential (primary) hypertension; I25.2 Old myocardial infarction; K21.9 Gastro-esophageal reflux disease without esophagitis; Z88.5 Allergy status to narcotic agent; Z88.8 Allergy status to other drugs, medicaments and biological substances; Z79.82 Long term (current) use of aspirin; Z79.899 Other long term (current) drug therapy; Z20.822 Contact with and (suspected) exposure to COVID-19
CPT/HCPCS: 36415; 71045; 80053; 83735; 84484; 85007; 85027; 85379; 85610; 87635; 93005; 99285; A9270; J7030; 93010; U0002

== ENCOUNTER 2023-07-24 16:18 | Emergency (ER) | payer OTHER ==
[2023-07-24] MEDS ORDERED: Sodium Chloride 0.9% 10 ML Syringe FLUSH PRN (16:28)
[2023-07-24 16:37] LABS: BASOPHILS ABSOLUTE AUTO 0.1 K/mm3 (0.0-0.2); BASOPHILS PERCENT AUTO 0.8 % (0.0-1.0); EOSINOPHILS PERCENT AUTO 0.4 % (0.0-6.0); HEMATOCRIT 43.5 % (42.0-52.0); HEMOGLOBIN 15.3 gm/dl (14.0-18.0); IMMATURE GRAN ABSOLUTE AUTO 0.03 K/mm3 (0.00-0.05); IMMATURE GRAN PERCENT AUTO 0.4 % (0.0-0.4); LYMPHOCYTES ABSOLUTE AUTO 1.6 K/mm3 (1.0-4.8); MEAN CORPUSCULAR HEMOGLOBIN 31.6 pg (28.0-32.0); MEAN CORPUSCULAR HGB CONC 35.2 g/dl (32.0-36.0); MEAN CORPUSCULAR VOLUME 89.9 fl (83.0-99.0); MEAN PLATELET VOLUME 8.5 fl (9.4-12.4); MONOCYTES ABSOLUTE AUTO 0.8 K/mm3 (0.0-0.8); MONOCYTES PERCENT AUTO 9.6 % (0.0-8.0); NEUTROPHILS ABSOLUTE AUTO 5.9 K/mm3 (1.8-7.7); NEUTROPHILS PERCENT AUTO 69.8 % (41.0-71.0); PLATELET COUNT,PLT 257 K/mm3 (150-400); RED BLOOD CELL COUNT 4.84 M/mm3 (4.52-5.90); WHITE BLOOD CELL COUNT,WBC 8.48 K/mm3 (3.9-11.3)
[2023-07-24 16:56] LABS: INR 1.11; PROTHROMBIN TIME 11.8 SECONDS (9.7-12.0)
[2023-07-24 16:57] LABS: PTT,PARTIAL THROMBOPLSTIN TIME 27.4 SECONDS (21.7-31.4)
[2023-07-24 17:01] LABS: ALBUMIN 3.7 g/dl (3.4-5.0); ANION GAP 14.7 (5-15); BILIRUBIN TOTAL 0.5 mg/dL (0.2-1.0); BUN/CREATININE RATIO 12.7 (14-18); CREATININE 1.1 mg/dL (0.7-1.3); EST CRCL DRUG DOSING (CG) 75.11 mL/min; POTASSIUM,K 3.7 mEq/L (3.5-5.1); PROTEIN TOTAL,TP 7.5 g/dl (6.4-8.2)
[2023-07-24 18:24] VITALS: BP 121/86; PULSE 76
== END 2023-07-24 18:20 | disposition home or self-care (01) ==
LOC: JD.ED 16:18
DX: S16.1XXA Strain of muscle, fascia and tendon at neck level, initial encounter (principal); S09.90XA Unspecified injury of head, initial encounter; I25.10 Atherosclerotic heart disease of native coronary artery without angina pectoris; E78.00 Pure hypercholesterolemia, unspecified; I10 Essential (primary) hypertension; I25.2 Old myocardial infarction; J45.909 Unspecified asthma, uncomplicated; Z88.8 Allergy status to other drugs, medicaments and biological substances; Z79.82 Long term (current) use of aspirin; Z79.899 Other long term (current) drug therapy; V49.40XA Driver injured in collision with unspecified motor vehicles in traffic accident, initial encounter; Y92.410 Unspecified street and highway as the place of occurrence of the external cause
CPT/HCPCS: 36415; 70450; 70450-26; 71045; 71045-26; 72125; 72125-26; 80053; 85025; 85610; 85730; 99283; 99284

== ENCOUNTER 2024-08-16 11:34 | Emergency (ER) | payer OTHER ==
[2024-08-16] MEDS ORDERED: Sodium Chloride 0.9% 10 ML Syringe FLUSH PRN (12:58)
[2024-08-16 14:54] LABS: BASOPHILS ABSOLUTE AUTO 0.1 K/mm3 (0.0-0.2); EOSINOPHILS ABSOLUTE AUTO 0.1 K/mm3 (0.0-0.4); EOSINOPHILS PERCENT AUTO 0.9 % (0.0-6.0); HEMATOCRIT 48.9 % (42.0-52.0); HEMOGLOBIN 16.5 gm/dl (14.0-18.0); IMMATURE GRAN ABSOLUTE AUTO 0.02 K/mm3 (0.00-0.05); IMMATURE GRAN PERCENT AUTO 0.3 % (0.0-0.4); LYMPHOCYTES ABSOLUTE AUTO 1.6 K/mm3 (1.0-4.8); LYMPHOCYTES PERCENT AUTO 20.5 % (24.0-44.0); MEAN CORPUSCULAR HEMOGLOBIN 28.8 pg (28.0-32.0); MEAN CORPUSCULAR HGB CONC 33.7 g/dl (32.0-36.0); MEAN CORPUSCULAR VOLUME 85.3 fl (83.0-99.0); MEAN PLATELET VOLUME 8.5 fl (9.4-12.4); MONOCYTES ABSOLUTE AUTO 0.8 K/mm3 (0.0-0.8); MONOCYTES PERCENT AUTO 9.5 % (0.0-8.0); NEUTROPHILS ABSOLUTE AUTO 5.4 K/mm3 (1.8-7.7); NEUTROPHILS PERCENT AUTO 67.8 % (41.0-71.0); PLATELET COUNT,PLT 279 K/mm3 (150-400); RED BLOOD CELL COUNT 5.73 M/mm3 (4.52-5.90)
[2024-08-16] MEDS: Diatrizoate Meglumine/Diatrizoate Sodium 37% 120 ML Bottle PO ONE (15:06)
[2024-08-16 15:15] LABS: A/G RATIO 1.1 (1-2); ALBUMIN 4.1 g/dl (3.4-5.0); ANION GAP 17.7 (5-15); BILIRUBIN TOTAL 0.7 mg/dL (0.2-1.0); BUN/CREATININE RATIO 9.1 (14-18); CALCIUM 9.2 mg/dL (8.5-10.1); CREATININE 1.1 mg/dL (0.7-1.3); EST CRCL DRUG DOSING (CG) 71.89 mL/min; POTASSIUM,K 3.7 mEq/L (3.5-5.1)
[2024-08-16 15:57] VITALS: BP 125/90; PULSE 66
== END 2024-08-16 15:57 | disposition home or self-care (01) ==
LOC: JD.ED 11:34
DX: T18.198A Other foreign object in esophagus causing other injury, initial encounter (principal); I10 Essential (primary) hypertension; E78.00 Pure hypercholesterolemia, unspecified; I25.10 Atherosclerotic heart disease of native coronary artery without angina pectoris; I25.2 Old myocardial infarction; Z88.5 Allergy status to narcotic agent; Z88.6 Allergy status to analgesic agent; Z88.8 Allergy status to other drugs, medicaments and biological substances; Z79.82 Long term (current) use of aspirin; Z79.02 Long term (current) use of antithrombotics/antiplatelets; Z95.5 Presence of coronary angioplasty implant and graft; Z79.899 Other long term (current) drug therapy
CPT/HCPCS: 36415; 71045; 71046; 80053; 85025; 93005; 99284; Q9963; 93010; 99283

== ENCOUNTER 2024-09-15 17:41 | Emergency (ER) | payer OTHER ==
[2024-09-15 18:16] LABS: BASOPHILS ABSOLUTE AUTO 0.1 K/mm3 (0.0-0.2); EOSINOPHILS ABSOLUTE AUTO 0.1 K/mm3 (0.0-0.4); EOSINOPHILS PERCENT AUTO 1.1 % (0.0-6.0); HEMATOCRIT 47.6 % (42.0-52.0); HEMOGLOBIN 16.1 gm/dl (14.0-18.0); IMMATURE GRAN ABSOLUTE AUTO 0.03 K/mm3 (0.00-0.05); IMMATURE GRAN PERCENT AUTO 0.3 % (0.0-0.4); LYMPHOCYTES ABSOLUTE AUTO 1.6 K/mm3 (1.0-4.8); LYMPHOCYTES PERCENT AUTO 18.6 % (24.0-44.0); MEAN CORPUSCULAR HEMOGLOBIN 28.8 pg (28.0-32.0); MEAN CORPUSCULAR HGB CONC 33.8 g/dl (32.0-36.0); MEAN CORPUSCULAR VOLUME 85.2 fl (83.0-99.0); MEAN PLATELET VOLUME 8.5 fl (9.4-12.4); MONOCYTES ABSOLUTE AUTO 0.9 K/mm3 (0.0-0.8); MONOCYTES PERCENT AUTO 9.8 % (0.0-8.0); NEUTROPHILS ABSOLUTE AUTO 6.1 K/mm3 (1.8-7.7); NEUTROPHILS PERCENT AUTO 69.2 % (41.0-71.0); PLATELET COUNT,PLT 249 K/mm3 (150-400); RED BLOOD CELL COUNT 5.59 M/mm3 (4.52-5.90); WHITE BLOOD CELL COUNT,WBC 8.84 K/mm3 (3.9-11.3)
[2024-09-15] MEDS: LORazepam 2 MG/ML SDV IVPUSH ONE (18:30)
[2024-09-15] MEDS: Aspirin 81 MG Tab.Chew PO ONE (18:33)
[2024-09-15 18:36] LABS: INR 1.13; PROTHROMBIN TIME 11.9 SECONDS (9.7-12.0)
[2024-09-15 18:37] LABS: D-DIMER QUANTITATIVE 0.38 mg/L (0.19-0.50)
[2024-09-15 18:38] LABS: PTT,PARTIAL THROMBOPLSTIN TIME 24.4 SECONDS (21.7-31.4)
[2024-09-15 18:47] LABS: A/G RATIO 1.1 (1-2); ALBUMIN 4.1 g/dl (3.4-5.0); ANION GAP 18.4 (5-15); BILIRUBIN TOTAL 0.6 mg/dL (0.2-1.0); BUN/CREATININE RATIO 7.3 (14-18); CALCIUM 9.5 mg/dL (8.5-10.1); CREATININE 1.5 mg/dL (0.7-1.3); EST CRCL DRUG DOSING (CG) 54.38 mL/min; POTASSIUM,K 3.4 mEq/L (3.5-5.1); PROTEIN TOTAL,TP 7.8 g/dl (6.4-8.2)
[2024-09-15] MEDS: Sodium Chloride 0.9% 1,000 ML IV SCH (19:25)
[2024-09-15] MEDS: Ketorolac 30 MG/ML SDV IVPUSH ONE (19:38)
[2024-09-15] MEDS ORDERED: Naloxone 0.4 MG/ML SDV IVPUSH PRN (20:25)
[2024-09-15] MEDS: fentaNYL 100 MCG/2 ML SDV IVPUSH ONE (20:40)
[2024-09-15] MEDS: Potassium Chloride 10 MEQ Tab.ER PO ONE (22:02)
[2024-09-15] MEDS: Heparin Sodium 5,000 Units/ML Vial IVPUSH ONE (22:02)
[2024-09-15] MEDS: Heparin Sodium/D5W 25,000 UNITS/500 ML BAG IV SCH (22:11)
[2024-09-15] MEDS ORDERED: Heparin Sodium/D5W 25,000 UNITS/500 ML BAG IV SCH (22:15)
[2024-09-15 22:26] VITALS: BP 149/102; PULSE 86
== END 2024-09-16 00:05 ==
LOC: JD.ED 17:41
DX: I21.4 Non-ST elevation (NSTEMI) myocardial infarction (principal); I25.10 Atherosclerotic heart disease of native coronary artery without angina pectoris; I25.2 Old myocardial infarction; I10 Essential (primary) hypertension; J45.909 Unspecified asthma, uncomplicated; E78.00 Pure hypercholesterolemia, unspecified; E78.5 Hyperlipidemia, unspecified; K21.9 Gastro-esophageal reflux disease without esophagitis; Z86.73 Personal history of transient ischemic attack (TIA), and cerebral infarction without residual deficits; Z86.16 Personal history of COVID-19; Z88.5 Allergy status to narcotic agent; Z88.8 Allergy status to other drugs, medicaments and biological substances; Z79.82 Long term (current) use of aspirin; Z79.51 Long term (current) use of inhaled steroids; Z79.899 Other long term (current) drug therapy
CPT/HCPCS: 36415; 71045; 71045-26; 80053; 83735; 83880; 84484; 85025; 85379; 85610; 85730; 93005; 96361; 96365; 96366; 96375; 99285-25; A9270-GY; J1644; J1885; J2060; J3010; J7030